=== PATIENT | male | born 1980 | race Two or more races ===

== ENCOUNTER 2018-08-14 19:00 | Inpatient (IN) | payer SELFPAY ==
[~2018-08-14] VITALS: Ht 177.8 cm; Wt 104.3 kg
[2018-08-14] MEDS ORDERED: IV NORMAL SALINE 1000ML BAG 1,000 ML IV ONE (20:15)
[2018-08-14 20:27] LABS: BASO # 0.1 x10^3/uL (0.0-0.2); BASO % 1 % (0-3); EOS % 0 % (0-3); HEMATOCRIT 48.3 % (39.0-53.0); HEMOGLOBIN 17.2 g/dL (13.0-17.5); LYMPH # 4.6 x10^3/uL (1.0-4.8); LYMPH % 49 % (24-48); MEAN CORPUSCULAR HEMOGLOBIN 33 pg (25-35); MEAN CORPUSCULAR HGB CONC 36 g/dL (31-37); MEAN CORPUSCULAR VOLUME 93 fL (79-100); MONO % 11 % (0-9); NEUT # 3.6 x10^3uL (1.8-7.7); NEUT % 39 % (31-73); PLATELET COUNT 169 x10^3/uL (140-400); RED CELL DISTRIBUTION WIDTH 14.9 % (11.5-14.5); WHITE BLOOD COUNT 9.3 x10^3/uL (4.0-11.0)
[2018-08-14] MEDS ORDERED: MULTIVIT INFUSN,ADULT 4,VIT K 10 ML, THIAMINE INJ 100 MG, FOLIC ACID INJ 1 MG in IV NOR... IV ONE (20:30)
--- NOTE | 2018-08-14 20:36 | PHYS DOC ---
Past Medical History Past Medical History: Hypertension Additional Past Surgical Histo: HERNIA Alcohol Use: Heavy Drug Use: Marijuana Adult General Chief Complaint Chief Complaint: WITHDRAWL HPI HPI 38-year-old male presents to ER as concerns of alcohol withdrawal. Patient reports he drank approx. 1 1/2 pints of vodka last night binge drinking with last drink at 2 a.m. Pt reports today he has felt nauseated and vomited at arrival to ER. Pt reports he has felt shaky and anxious. Pt reports he has had hx of alcohol withdrawal seizures in past. Pt denies any seizure like activity today or lethargy. Pt reports he has had tingling in bilat. hands- on initial exam pt has rapid resp. which was discussed and he was able to slow his breathing. Pt denies CP, SOA, abd pain, or diarrhea. Pt reports he smokes marijuana occasional denying any other illicit drug use. Review of Systems Review of Systems Constitutional: Reports chills and feeling shaky- denies fever, confusion. Reports generalized fatigue Eyes: Denies change in visual acuity, redness, or eye pain [] HENT: Denies nasal congestion or sore throat [] Respiratory: Denies cough or shortness of breath [] Cardiovascular: Denies CP/palpitations GI: Denies bloody stools or diarrhea. Reports intermittent nausea with 1 episode of vomiting on arrival to ER. Reports mild diffuse abd cramping : Denies dysuria or hematuria. Denies incontinence Musculoskeletal: Denies back pain or joint pain [] Integument: Denies rash, swelling, or skin lesions [] Neurologic: Denies headache, focal weakness or sensory changes Psych: Feels anxious denying any SI/HI or hallucinations/delusions[] All other systems were reviewed and found to be within normal limits, except as documented in this note. Current Medications Current Medications Current Medications Medications (Trade) Dose Ordered Sig/[place] Start Time Stop Time Status Last Admin Dose Admin Lorazepam (Ativan) 1 mg 1X ONCE 08/14/18 20:45 08/14/18 20:49 DC 08/14/18 21:31 1 MG Multivitamins 10 ml/Thiamine HCl 100 mg/Folic Acid 1 mg/Sodium Chloride 1,011.2 ml @ 1,000.088 mls/hr 1X ONCE 08/14/18 20:30 08/14/18 21:30 DC 08/14/18 20:43 1,000.088 MLS/HR Ondansetron HCl (Zofran) 4 mg 1X ONCE 08/14/18 20:45 08/14/18 20:49 DC 08/14/18 21:31 4 MG Sodium Chloride 1,000 ml @ 1,000 mls/hr 1X ONCE 08/14/18 20:15 08/14/18 21:14 DC 08/14/18 20:20 1,000 MLS/HR Allergies Allergies Allergies Coded Allergies Type Severity Reaction Last Updated Verified No Known Drug Allergies 08/14/18 No Physical Exam Physical Exam Constitutional: Well developed, well nourished, mild distress on initial exam anxious/shaky/rapid breathing, non-toxic appearance. [] HENT: Normocephalic, atraumatic, bilateral external ears normal, dry/pink mucous membranes, no oral exudates, nose normal. [] Eyes: PERRLA, no nystagmus, conjunctiva normal, no discharge. [] Neck: Normal range of motion, no tenderness, supple, no stridor. [] Cardiovascular:Heart rate regular rhythm, no murmur [] Lungs & Thorax: Bilateral breath sounds clear to auscultation. Resp. equal- initially rapid- with redirection pt was able to slow breathing Abdomen: Bowel sounds normal, soft, no tenderness, no masses, no pulsatile masses. [] Skin: Warm, dry, no erythema, no rash. [] Back: No tenderness, no CVA tenderness. [] Extremities: No tenderness, no cyanosis, no clubbing, ROM intact, no edema. [] Neurologic: Alert and oriented X 3, normal motor function, normal sensory function, no focal deficits noted. [] Psychologic: Affect normal, judgement normal, mood normal. No uncontrollable behavior[] Current Patient Data Vital Signs Vital Signs Date Time Temp Pulse Resp B/P (MAP) Pulse Ox O2 Delivery O2 Flow Rate FiO2 08/14/18 21:00 80 18 163/105 (124) 99 08/14/18 19:34 97.8 Room Air 97.8 Lab Values Laboratory Tests Test 08/14/18 19:28 08/14/18 20:37 White Blood Count 9.3 x10^3/uL (4.0-11.0) Red Blood Count 5.20 x10^6/uL (4.30-5.70) Hemoglobin 17.2 g/dL (13.0-17.5) Hematocrit 48.3 % (39.0-53.0) Mean Corpuscular Volume 93 fL (79-100) Mean Corpuscular Hemoglobin 33 pg (25-35) Mean Corpuscular Hemoglobin Concent 36 g/dL (31-37) Red Cell Distribution Width 14.9 % (11.5-14.5) H Platelet Count 169 x10^3/uL (140-400) Neutrophils (%) (Auto) 39 % (31-73) Lymphocytes (%) (Auto) 49 % (24-48) H Monocytes (%) (Auto) 11 % (0-9) H Eosinophils (%) (Auto) 0 % (0-3) Basophils (%) (Auto) 1 % (0-3) Neutrophils # (Auto) 3.6 x10^3uL (1.8-7.7) Lymphocytes # (Auto) 4.6 x10^3/uL (1.0-4.8) Monocytes # (Auto) 1.0 x10^3/uL (0.0-1.1) Eosinophils # (Auto) 0.0 x10^3/uL (0.0-0.7) Basophils # (Auto) 0.1 x10^3/uL (0.0-0.2) Prothrombin Time 13.9 SEC (11.7-14.0) Prothrombin Time INR 1.1 (0.8-1.1) PTT 29 SEC (24-38) Sodium Level 138 mmol/L (136-145) Potassium Level 3.1 mmol/L (3.5-5.1) L Chloride Level 95 mmol/L (98-107) L Carbon Dioxide Level 21 mmol/L (21-32) Anion Gap 22 (6-14) H Blood Urea Nitrogen 7 mg/dL (8-26) L Creatinine 1.1 mg/dL (0.7-1.3) Estimated GFR (Cockcroft-Gault) 75.3 BUN/Creatinine Ratio 6 (6-20) Glucose Level 169 mg/dL (70-99) H Calcium Level 9.5 mg/dL (8.5-10.1) Magnesium Level 1.5 mg/dL (1.8-2.4) L Total Bilirubin 0.6 mg/dL (0.2-1.0) Aspartate Amino Transferase (AST) 77 U/L (15-37) H Alanine Aminotransferase (ALT) 55 U/L (16-63) Alkaline Phosphatase 73 U/L (46-116) Total Protein 8.7 g/dL (6.4-8.2) H Albumin 4.0 g/dL (3.4-5.0) Albumin/Globulin Ratio 0.9 (1.0-1.7) L Lipase 532 U/L (73-393) H Ethyl Alcohol Level 48 mg/dL (0-10) H Urine Collection Type Unknown Urine Color Mitzy Urine Clarity Clear Urine pH 6.5 Urine Specific [place] 1.025 Urine Protein 100 mg/dL (NEG-TRACE) Urine Glucose (UA) 100 mg/dL (NEG) Urine Ketones (Stick) 15 mg/dL (NEG) Urine Blood Trace (NEG) Urine Nitrite Negative (NEG) Urine Bilirubin Negative (NEG) Urine Urobilinogen Dipstick 0.2 mg/dL (0.2 mg/dL) Urine Leukocyte Esterase Negative (NEG) Urine RBC Occ /HPF (0-2) Urine WBC 1-4 /HPF (0-4) Urine Squamous Epithelial Cells Few /LPF Urine Bacteria Few /HPF (0-FEW) Urine Mucus Marked /LPF Urine Opiates Screen Neg (NEG) Urine Methadone Screen Neg (NEG) Urine Barbiturates Neg (NEG) Urine Phencyclidine Screen Neg (NEG) Urine Amphetamine/Methamphetamine Neg (NEG) Urine Benzodiazepines Screen Neg (NEG) Urine Cocaine Screen Neg (NEG) Urine Cannabinoids Screen Pos (NEG) Urine Ethyl Alcohol Pos (NEG) Laboratory Tests 08/14/18 19:28 Laboratory Tests 08/14/18 19:28 EKG EKG ECG 19:33 ST @ [address]-T wave changes suggestive of ischemia Radiology/Procedures Radiology/Procedures [] Course & Med Decision Making Course & Med Decision Making Pertinent Labs reviewed. (See chart for details) On arrival pt was anxious and shaky- with redirection on breathing he was able calm self some with slower resp. With pt reporting hx of previous etoh withdrawal seizures- initiated seizure precautions. 2046: RN reports during further discussion with patient he admitted today around 2 PM he was drinking rubbing alcohol. This was discussed with pt and he reported he had no other alcohol at home and felt his shakes and sxs were worsening so in attempt to improve sxs he drank sm. amt of rubbing alcohol. Pt reports he is still feeling shaky but has had improved sxs since receiving flds/tx in ER. He reports he is feeling less anxious. Patient has had no seizure -like activity while in the ER. Patient reports 2 months ago he was inpatient at [facility] due to alcohol withdrawal seizures and so he has concerns for this again. Will admit to hospitalist for further care/monitoring. Test results were discussed with pt with K+ 3.1 alcohol 48 lipase 532. Pt was given banana bag and ativan for sxs. Pt has denied SI but reported hx of anxiety/ depression. He is requesting resources on alcohol detox centers/tx programs- will inform hospitalist. Provided resource sheet on community programs while in ER. Dragon Disclaimer Dragon Disclaimer This electronic medical record was generated, in whole or in part, using a voice recognition dictation system. Departure Departure Impression: Primary Impression: Alcohol withdrawal Additional Impression: Alcohol abuse Disposition: ADMITTED INPATIENT Admitting Physician: Nicole Quinteros Condition: STABLE Referrals: NO PCP (PCP) Scripts Folic Acid (FOLIC ACID) 1 Mg Tablet 1 TAB PO DAILY, #90 TAB 1 Refill Prov: GREYSON RIVERA MD 08/16/18 Thiamine Hcl (THIAMINE HCL) 100 Mg Tablet 100 MG PO AFTRNOON for 30 Days, #30 TAB Prov: GREYSON RIVERA MD 08/16/18 Pantoprazole Sodium (PROTONIX IV) 40 Mg Vial 40 MG IVP DAILYAC for 14 Days, #14 EACH Prov: GREYSON RIVERA MD 08/16/18 Attending Co-Sign Attending Co-Sign The patient was not seen by me. The MLP chart was reviewed. I Agree with the plan of care. Problem Qualifiers TALA HIDALGO APRN Aug 14, 2018 20:36 CHRISTY GRAHAM MD Aug 15, 2018 06:42
[2018-08-14 20:37] LABS: PROTHROMBIN TIME PATIENT 13.9 SEC (11.7-14.0)
[2018-08-14] MEDS ORDERED: ONDANSETRON PF 4 MG/2 ML VIAL. IV ONE (20:45)
[2018-08-14 20:53] LABS: BILIRUBIN,URINE NEGATIVE (NEG); CLARITY,URINE CLEAR; COLOR,URINE AMBER; NITRITE,URINE NEGATIVE (NEG); PH,URINE 6.5; PROTEIN,URINE 100 mg/dL (NEG-TRACE); UROBILINOGEN,URINE 0.2 mg/dL (0.2 mg/dL)
[2018-08-14 21:00] LABS: BACTERIA,URINE FEW /HPF (0-FEW); RBC,URINE OCC /HPF (0-2); SQUAMOUS EPITHELIAL CELL,UR FEW /LPF
[2018-08-14 21:00] LABS: CALCIUM 9.5 mg/dL (8.5-10.1); CREATININE 1.1 mg/dL (0.7-1.3); GFR 75.3; POTASSIUM 3.1 mmol/L (3.5-5.1)
[2018-08-14 21:09] LABS: ALBUMIN/GLOBULIN RATIO 0.9 (1.0-1.7); MAGNESIUM 1.5 mg/dL (1.8-2.4); TOTAL BILIRUBIN 0.6 mg/dL (0.2-1.0); TOTAL PROTEIN 8.7 g/dL (6.4-8.2)
[2018-08-14 21:12] LABS: BARBITURATES NEG (NEG); BENZODIAZEPINES NEG (NEG); CANNABINOIDS POS (NEG); COCAINE NEG (NEG); METHADONE NEG (NEG); OPIATES NEG (NEG); PHENCYCLIDINE NEG (NEG)
[2018-08-14 21:15] LABS: AMPHETAMINE/METHAMPHETAMINE NEG (NEG)
[2018-08-14 23:00] VITALS: BP 143/103
[2018-08-14] MEDS ORDERED: INFLUENZA VAX SCREEN BY RX. MC PRN (23:45)
--- NOTE | 2018-08-14 23:58 | EKG ---
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
[2018-08-15] MEDS ORDERED: LISI-334 PO (00:03)
[2018-08-15] MEDS ORDERED: chlordiazePOXIDE HCL 25 MG CAPSULE PO PRN (02:30)
[2018-08-15 03:00] VITALS: BP 142/96
[2018-08-15] MEDS: ONDANSETRON PF 4 MG/2 ML VIAL. IV PRN ×2 (03:09→19:53)
[2018-08-15 06:04] LABS: BASO % 0 % (0-3); EOS % 0 % (0-3); HEMATOCRIT 45.4 % (39.0-53.0); HEMOGLOBIN 15.9 g/dL (13.0-17.5); LYMPH # 2.6 x10^3/uL (1.0-4.8); LYMPH % 28 % (24-48); MEAN CORPUSCULAR HEMOGLOBIN 33 pg (25-35); MEAN CORPUSCULAR HGB CONC 35 g/dL (31-37); MEAN CORPUSCULAR VOLUME 95 fL (79-100); MONO # 0.9 x10^3/uL (0.0-1.1); MONO % 9 % (0-9); NEUT # 5.8 x10^3uL (1.8-7.7); NEUT % 62 % (31-73); PLATELET COUNT 132 x10^3/uL (140-400); RED CELL DISTRIBUTION WIDTH 15.2 % (11.5-14.5); WHITE BLOOD COUNT 9.3 x10^3/uL (4.0-11.0)
[2018-08-15 06:27] LABS: ALBUMIN 3.4 g/dL (3.4-5.0); ALBUMIN/GLOBULIN RATIO 0.7 (1.0-1.7); CALCIUM 8.6 mg/dL (8.5-10.1); CREATININE 1.1 mg/dL (0.7-1.3); GFR 75.3; POTASSIUM 3.1 mmol/L (3.5-5.1); TOTAL BILIRUBIN 0.8 mg/dL (0.2-1.0)
[2018-08-15 07:00] VITALS: BP 161/106
[2018-08-15] MEDS: chlordiazePOXIDE HCL 25 MG CAPSULE PO PRN ×3 (08:23→15:59)
[2018-08-15] MEDS: cloNIDine HCL 0.1 MG TABLET PO PRN ×4 (08:25→19:54)
[2018-08-15] MEDS: IBUPROFEN 200 MG TABLET. PO PRN ×2 (08:27→19:54)
--- NOTE | 2018-08-15 10:35 | PDOC1 ---
History and Physical Date of Admission Date of Admission DATE: 08/15/18 TIME: 10:34 Identification/Chief Complaint Chief Complaint CC 38-year-old male presents to ER as concerns of alcohol withdrawal. reports he drank approx. 1 1/2 pints of vodka last night binge drinking with last drink at 2 a.m. IS UPSET HIS GIRLFRIEND HAS LEFT HIM has felt nauseated and vomited at arrival to ER. , he has felt shaky and anxious. reports he has had hx of alcohol withdrawal seizures in pasT Past Medical History Cardiovascular: Hyperlipidemia Heme/Onc: No pertinent hx Psych: Anxiety Dermatology: No pertinent hx Past Surgical History Past Surgical History: No pertinent history Family History Family History: Alcohol Abuse, Depression, High Cholestrol Family History: Parent Social History Smoke: <1 pack per day ALCOHOL: heavy Drugs: None Current Problem List Problem List Problems Medical Problems: (1) Alcohol abuse Status: Acute (2) Alcohol withdrawal Status: Acute Current Medications Current Medications Current Medications Sodium Chloride 1,000 ml @ 1,000 mls/hr 1X ONCE IV Last administered on at 20:20; Start 08/14/18 at 20:15; Stop 08/14/18 at 21:14; Status DC Multivitamins 10 ml/Thiamine HCl 100 mg/Folic Acid 1 mg/Sodium Chloride 1,011.2 ml @ 1,000.088 mls/hr 1X ONCE IV Last administered on 08/14/18at 20:43; Start 08/14/18 at 20:30; Stop 08/14/18 at 21:30; Status DC Lorazepam (Ativan) 1 mg 1X ONCE IV Last administered on 08/14/18at 20:20; Start 08/14/18 at 20:15; Stop 08/14/18 at 20:16; Status DC Ondansetron HCl (Zofran) 4 mg 1X ONCE IV Last administered on 08/14/18at 21:31 ; Start 08/14/18 at 20:45; Stop 08/14/18 at 20:49; Status DC Lorazepam (Ativan) 1 mg 1X ONCE IV Last administered on 08/14/18at 21:31; Start 08/14/18 at 20:45; Stop 08/14/18 at 20:49; Status DC Ondansetron HCl (Zofran) 4 mg PRN Q6HRS PRN IV NAUSEA/VOMITING Last administered on 08/15/18at 03:09; Start 08/14/18 at 22:45; Stop 08/15/18 at 22:44 Influenza Virus Vaccine (Afluria Trivalent 0095-0320 Syringe) 0.5 ml ONCE ONCE VAX IM Last administered on 08/15/18at 08:32; Start 08/15/18 at 09:00; Stop at 09:01; Status DC Info (FLU VACCINE SCREEN per RX) 1 each PRN 1X PRN MC SEE COMMENTS; Start 08/14 at 23:45; Status Cancel Chlordiazepoxide (Librium) 50 mg PRN Q1HR PRN PO For CIWA 8-14 Last administered on 08/15/18at 09:53; Start 08/15/18 at 02:30 Chlordiazepoxide (Librium) 100 mg PRN Q1HR PRN PO For CIWA 15 or greater; Start 08/15/18 at 02:30 Lorazepam (Ativan) 2 mg PRN Q1HR PRN IV For CIWA 8-14 Last administered on 08/15at 03:10; Start 08/15/18 at 02:30 Lorazepam (Ativan) 4 mg PRN Q1HR PRN IV For CIWA 15 or greater; Start 08/15/18 at 02:30 Clonidine HCl (Catapres) 0.1 mg PRN Q1HR PRN PO SBP > 180 or DBP > 100, MRX3 Last administered on 08/15/18at 09:54; Start 08/15/18 at 02:30 Ibuprofen (Motrin) 600 mg PRN Q8HRS PRN PO INFLAMMATION Last administered on at 08:27; Start 08/15/18 at 08:00 Active Scripts Active Reported Lisinopril 20 Mg Tablet 1 Tab PO DAILY Allergies Allergies: Coded Allergies: No Known Drug Allergies (Unverified , 08/14/18) ROS Review of System Review of Systems Review of Systems Constitutional: Denies fever or chills [] Eyes: Denies change in visual acuity, redness, or eye pain [] HENT: Denies nasal congestion or sore throat HAS HEADACHE, NO NECK PAIN [] Respiratory: Denies cough or shortness of breath [] Cardiovascular: No additional information not addressed in HPI [] GI: nausea, NO vomiting, bloody stools or diarrhea [] : Denies dysuria or hematuria [] Musculoskeletal: Denies back pain or joint pain [] Integument: Denies rash or skin lesions [] Neurologic: Denies headache, focal weakness or sensory changes [] Endocrine: Denies polyuria or polydipsia [] 14 PT systems were reviewed and found to be within normal limits, except as documented in this note. General: YES: Fatigue PSYCHOLOGICAL ROS: YES: Anxiety, Depression HEENT: YES: Heacaches ENDOCRINE: No: Breast Changes, Galactorrhea, Hair Pattern Changes, Hot Flashes , Malaise/lethargy, Mood Swings, Palpitations, Polydipsia/polyuria, Skin Changes , Temperature Intolerance, Unexpected Weight Changes, Other Respiratory: No: Cough, Hemoptysis, Orthopnea, Pleuritic Pain, Shortness of breath, SOB with excertion, Sputum Changes, Stridor, Tachypnea, Wheezing, Other Gastrointestinal: Yes Nausea Musculoskeletal: No Gait Disturbance, No Joint Pain, No Joint Stiffness, No Joint Swelling, No Muscle Pain, No Muscular Weakness, No Pain In:, No Swelling In:, No Other Physical Exam Physical Exam Physical Exam Physical Exam Constitutional: Well developed, well nourished, mild distress on initial exam anxious// NO rapid breathing, non-toxic appearance. [] HENT: Normocephalic, atraumatic, bilateral external ears normal, MOIST /pink mucous membranes, no oral exudates, nose normal. [] Eyes: PERRLA, no nystagmus, conjunctiva normal, no discharge. [] Neck: Normal range of motion, no tenderness, supple, no stridor. [] Cardiovascular:Heart rate regular rhythm, no murmur [] Lungs & Thorax: Bilateral breath sounds clear to auscultation. Resp. equal- initially rapid- with redirection pt was able to slow breathing Abdomen: Bowel sounds normal, soft, no tenderness, no masses, no pulsatile masses. [] Skin: Warm, dry, no erythema, no rash. [] Back: No tenderness, no CVA tenderness. [] Extremities: No tenderness, no cyanosis, no clubbing, ROM intact, no edema. [] Neurologic: Alert and oriented X 3, normal motor function, normal sensory function, no focal deficits noted. NO SELF HARM IDEATIONS [] Psychologic: Affect FLAT, judgement normal, mood normal. No uncontrollable behavior[] General: Oriented X3, Cooperative HEENT: Atraumatic, PERRLA, EOMI, Mucous membr. moist/pink Lungs: Clear to auscultation, Normal air movement Abdomen: Normal bowel sounds, Soft Rectal Exam: not examined Neuro: Normal speech, Cranial nerves 3-12 NL Psych/Mental Status: Mental status NL Vitals Vitals Vital Signs Date Time Temp Pulse Resp B/P (MAP) Pulse Ox O2 Delivery O2 Flow Rate FiO2 08/15/18 09:54 80 148/108 08/15/18 08:00 Room Air 08/15/18 07:00 98.6 18 96 98.6 Labs Labs Laboratory Tests Test 08/14/18 19:28 08/14/18 20:37 08/15/18 04:43 White Blood Count 9.3 x10^3/uL (4.0-11.0) 9.3 x10^3/uL (4.0-11.0) Red Blood Count 5.20 x10^6/uL (4.30-5.70) 4.80 x10^6/uL (4.30-5.70) Hemoglobin 17.2 g/dL (13.0-17.5) 15.9 g/dL (13.0-17.5) Hematocrit 48.3 % (39.0-53.0) 45.4 % (39.0-53.0) Mean Corpuscular Volume 93 fL (79-100) 95 fL (79-100) Mean Corpuscular Hemoglobin 33 pg (25-35) 33 pg (25-35) Mean Corpuscular Hemoglobin Concent 36 g/dL (31-37) 35 g/dL (31-37) Red Cell Distribution Width 14.9 % (11.5-14.5) 15.2 % (11.5-14.5) Platelet Count 169 x10^3/uL (140-400) 132 x10^3/uL (140-400) Neutrophils (%) (Auto) 39 % (31-73) 62 % (31-73) Lymphocytes (%) (Auto) 49 % (24-48) 28 % (24-48) Monocytes (%) (Auto) 11 % (0-9) 9 % (0-9) Eosinophils (%) (Auto) 0 % (0-3) 0 % (0-3) Basophils (%) (Auto) 1 % (0-3) 0 % (0-3) Neutrophils # (Auto) 3.6 x10^3uL (1.8-7.7) 5.8 x10^3uL (1.8-7.7) Lymphocytes # (Auto) 4.6 x10^3/uL (1.0-4.8) 2.6 x10^3/uL (1.0-4.8) Monocytes # (Auto) 1.0 x10^3/uL (0.0-1.1) 0.9 x10^3/uL (0.0-1.1) Eosinophils # (Auto) 0.0 x10^3/uL (0.0-0.7) 0.0 x10^3/uL (0.0-0.7) Basophils # (Auto) 0.1 x10^3/uL (0.0-0.2) 0.0 x10^3/uL (0.0-0.2) Prothrombin Time 13.9 SEC (11.7-14.0) Prothromb Time International Ratio 1.1 (0.8-1.1) Activated Partial Thromboplast Time 29 SEC (24-38) Sodium Level 138 mmol/L (136-145) 138 mmol/L (136-145) Potassium Level 3.1 mmol/L (3.5-5.1) 3.1 mmol/L (3.5-5.1) Chloride Level 95 mmol/L (98-107) 99 mmol/L (98-107) Carbon Dioxide Level 21 mmol/L (21-32) 27 mmol/L (21-32) Anion Gap 22 (6-14) 12 (6-14) Blood Urea Nitrogen 7 mg/dL (8-26) 4 mg/dL (8-26) Creatinine 1.1 mg/dL (0.7-1.3) 1.1 mg/dL (0.7-1.3) Estimated GFR (Cockcroft-Gault) 75.3 75.3 BUN/Creatinine Ratio 6 (6-20) 4 (6-20) Glucose Level 169 mg/dL (70-99) 105 mg/dL (70-99) Calcium Level 9.5 mg/dL (8.5-10.1) 8.6 mg/dL (8.5-10.1) Magnesium Level 1.5 mg/dL (1.8-2.4) Total Bilirubin 0.6 mg/dL (0.2-1.0) 0.8 mg/dL (0.2-1.0) Aspartate Amino Transf (AST/SGOT) 77 U/L (15-37) 55 U/L (15-37) Alanine Aminotransferase (ALT/SGPT) 55 U/L (16-63) 49 U/L (16-63) Alkaline Phosphatase 73 U/L (46-116) 68 U/L (46-116) Total Protein 8.7 g/dL (6.4-8.2) 8.0 g/dL (6.4-8.2) Albumin 4.0 g/dL (3.4-5.0) 3.4 g/dL (3.4-5.0) Albumin/Globulin Ratio 0.9 (1.0-1.7) 0.7 (1.0-1.7) Lipase 532 U/L (73-393) Ethyl Alcohol Level 48 mg/dL (0-10) Urine Collection Type Unknown Urine Color Mitzy Urine Clarity Clear Urine pH 6.5 Urine Specific [place] 1.025 Urine Protein 100 mg/dL (NEG-TRACE) Urine Glucose (UA) 100 mg/dL (NEG) Urine Ketones (Stick) 15 mg/dL (NEG) Urine Blood Trace (NEG) Urine Nitrite Negative (NEG) Urine Bilirubin Negative (NEG) Urine Urobilinogen Dipstick 0.2 mg/dL (0.2 mg/dL) Urine Leukocyte Esterase Negative (NEG) Urine RBC Occ /HPF (0-2) Urine WBC 1-4 /HPF (0-4) Urine Squamous Epithelial Cells Few /LPF Urine Bacteria Few /HPF (0-FEW) Urine Mucus Marked /LPF Urine Opiates Screen Neg (NEG) Urine Methadone Screen Neg (NEG) Urine Barbiturates Neg (NEG) Urine Phencyclidine Screen Neg (NEG) Urine Amphetamine/Methamphetamine Neg (NEG) Urine Benzodiazepines Screen Neg (NEG) Urine Cocaine Screen Neg (NEG) Urine Cannabinoids Screen Pos (NEG) Urine Ethyl Alcohol Pos (NEG) Laboratory Tests Test 08/14/18 19:28 08/14/18 20:37 08/15/18 04:43 White Blood Count 9.3 x10^3/uL (4.0-11.0) 9.3 x10^3/uL (4.0-11.0) Red Blood Count 5.20 x10^6/uL (4.30-5.70) 4.80 x10^6/uL (4.30-5.70) Hemoglobin 17.2 g/dL (13.0-17.5) 15.9 g/dL (13.0-17.5) Hematocrit 48.3 % (39.0-53.0) 45.4 % (39.0-53.0) Mean Corpuscular Volume 93 fL (79-100) 95 fL (79-100) Mean Corpuscular Hemoglobin 33 pg (25-35) 33 pg (25-35) Mean Corpuscular Hemoglobin Concent 36 g/dL (31-37) 35 g/dL (31-37) Red Cell Distribution Width 14.9 % (11.5-14.5) 15.2 % (11.5-14.5) Platelet Count 169 x10^3/uL (140-400) 132 x10^3/uL (140-400) Neutrophils (%) (Auto) 39 % (31-73) 62 % (31-73) Lymphocytes (%) (Auto) 49 % (24-48) 28 % (24-48) Monocytes (%) (Auto) 11 % (0-9) 9 % (0-9) Eosinophils (%) (Auto) 0 % (0-3) 0 % (0-3) Basophils (%) (Auto) 1 % (0-3) 0 % (0-3) Neutrophils # (Auto) 3.6 x10^3uL (1.8-7.7) 5.8 x10^3uL (1.8-7.7) Lymphocytes # (Auto) 4.6 x10^3/uL (1.0-4.8) 2.6 x10^3/uL (1.0-4.8) Monocytes # (Auto) 1.0 x10^3/uL (0.0-1.1) 0.9 x10^3/uL (0.0-1.1) Eosinophils # (Auto) 0.0 x10^3/uL (0.0-0.7) 0.0 x10^3/uL (0.0-0.7) Basophils # (Auto) 0.1 x10^3/uL (0.0-0.2) 0.0 x10^3/uL (0.0-0.2) Prothrombin Time 13.9 SEC (11.7-14.0) Prothromb Time International Ratio 1.1 (0.8-1.1) Activated Partial Thromboplast Time 29 SEC (24-38) Sodium Level 138 mmol/L (136-145) 138 mmol/L (136-145) Potassium Level 3.1 mmol/L (3.5-5.1) 3.1 mmol/L (3.5-5.1) Chloride Level 95 mmol/L (98-107) 99 mmol/L (98-107) Carbon Dioxide Level 21 mmol/L (21-32) 27 mmol/L (21-32) Anion Gap 22 (6-14) 12 (6-14) Blood Urea Nitrogen 7 mg/dL (8-26) 4 mg/dL (8-26) Creatinine 1.1 mg/dL (0.7-1.3) 1.1 mg/dL (0.7-1.3) Estimated GFR (Cockcroft-Gault) 75.3 75.3 BUN/Creatinine Ratio 6 (6-20) 4 (6-20) Glucose Level 169 mg/dL (70-99) 105 mg/dL (70-99) Calcium Level 9.5 mg/dL (8.5-10.1) 8.6 mg/dL (8.5-10.1) Magnesium Level 1.5 mg/dL (1.8-2.4) Total Bilirubin 0.6 mg/dL (0.2-1.0) 0.8 mg/dL (0.2-1.0) Aspartate Amino Transf (AST/SGOT) 77 U/L (15-37) 55 U/L (15-37) Alanine Aminotransferase (ALT/SGPT) 55 U/L (16-63) 49 U/L (16-63) Alkaline Phosphatase 73 U/L (46-116) 68 U/L (46-116) Total Protein 8.7 g/dL (6.4-8.2) 8.0 g/dL (6.4-8.2) Albumin 4.0 g/dL (3.4-5.0) 3.4 g/dL (3.4-5.0) Albumin/Globulin Ratio 0.9 (1.0-1.7) 0.7 (1.0-1.7) Lipase 532 U/L (73-393) Ethyl Alcohol Level 48 mg/dL (0-10) Urine Collection Type Unknown Urine Color Mitzy Urine Clarity Clear Urine pH 6.5 Urine Specific [place] 1.025 Urine Protein 100 mg/dL (NEG-TRACE) Urine Glucose (UA) 100 mg/dL (NEG) Urine Ketones (Stick) 15 mg/dL (NEG) Urine Blood Trace (NEG) Urine Nitrite Negative (NEG) Urine Bilirubin Negative (NEG) Urine Urobilinogen Dipstick 0.2 mg/dL (0.2 mg/dL) Urine Leukocyte Esterase Negative (NEG) Urine RBC Occ /HPF (0-2) Urine WBC 1-4 /HPF (0-4) Urine Squamous Epithelial Cells Few /LPF Urine Bacteria Few /HPF (0-FEW) Urine Mucus Marked /LPF Urine Opiates Screen Neg (NEG) Urine Methadone Screen Neg (NEG) Urine Barbiturates Neg (NEG) Urine Phencyclidine Screen Neg (NEG) Urine Amphetamine/Methamphetamine Neg (NEG) Urine Benzodiazepines Screen Neg (NEG) Urine Cocaine Screen Neg (NEG) Urine Cannabinoids Screen Pos (NEG) Urine Ethyl Alcohol Pos (NEG) VTE Prophylaxis Ordered VTE Prophylaxis Devices: Yes VTE Pharmacological Prophylaxi: Yes Assessment/Plan Assessment/Plan IMPRESSION 1. Situational depression 2. alcohol abuse 3. morbid obesity 4. hypertension plan 1. alcohol withdrawal precautions 2. bp control 3. banana bag 4. refer for alcohol dependency 5. scd's 6. iv protonix gi prophylaxis GREYSON RIVERA MD Aug 15, 2018 10:35
[2018-08-15 11:00] VITALS: BP 150/97
[2018-08-15] MEDS ORDERED: MULTIVIT INFUSN,ADULT 4,VIT K 10 ML, THIAMINE INJ 100 MG, FOLIC ACID INJ 1 MG in IV NOR... IV ONE (14:30)
[2018-08-15 15:00] VITALS: BP 144/102
[2018-08-15 19:00] VITALS: BP 152/106
[2018-08-15 23:00] VITALS: BP 138/85
[2018-08-16 03:00] VITALS: BP_SYST 137; BP_SYST 142; BP_DIAS 106; BP_DIAS 84
[2018-08-16 05:34] LABS: BASO % 0 % (0-3); EOS # 0.1 x10^3/uL (0.0-0.7); EOS % 1 % (0-3); HEMATOCRIT 49.6 % (39.0-53.0); HEMOGLOBIN 17.2 g/dL (13.0-17.5); LYMPH # 2.4 x10^3/uL (1.0-4.8); LYMPH % 31 % (24-48); MEAN CORPUSCULAR HEMOGLOBIN 33 pg (25-35); MEAN CORPUSCULAR HGB CONC 35 g/dL (31-37); MEAN CORPUSCULAR VOLUME 94 fL (79-100); MONO # 0.8 x10^3/uL (0.0-1.1); MONO % 10 % (0-9); NEUT # 4.6 x10^3uL (1.8-7.7); NEUT % 58 % (31-73); PLATELET COUNT 138 x10^3/uL (140-400); RED BLOOD COUNT 5.29 x10^6/uL (4.30-5.70); RED CELL DISTRIBUTION WIDTH 15.2 % (11.5-14.5); WHITE BLOOD COUNT 7.9 x10^3/uL (4.0-11.0)
[2018-08-16 06:07] LABS: ALBUMIN 3.5 g/dL (3.4-5.0); ALBUMIN/GLOBULIN RATIO 0.7 (1.0-1.7); CALCIUM 9.1 mg/dL (8.5-10.1); CREATININE 0.9 mg/dL (0.7-1.3); POTASSIUM 3.6 mmol/L (3.5-5.1); TOTAL BILIRUBIN 0.9 mg/dL (0.2-1.0); TOTAL PROTEIN 8.2 g/dL (6.4-8.2)
[2018-08-16] MEDS ORDERED: ONDANSETRON PF 4 MG/2 ML VIAL. ONE (06:48)
[2018-08-16 07:00] VITALS: BP 142/103
[2018-08-16] MEDS ORDERED: ONDANSETRON PF 4 MG/2 ML VIAL. IV PRN (07:00)
[2018-08-16] MEDS ORDERED: PANTOPRAZOLE IV PUSH 40 MG VIAL. IVP SCH (07:30)
[2018-08-16] MEDS: cloNIDine HCL 0.1 MG TABLET PO PRN (07:40)
[2018-08-16] MEDS: chlordiazePOXIDE HCL 25 MG CAPSULE PO PRN (07:40)
--- NOTE | 2018-08-16 09:27 | PDOC ---
PROGRESS NOTES History of Present Illness History of Present Illness Assessment/Plan Assessment/Plan IMPRESSION 1. Situational depression 2. alcohol abuse 3. morbid obesity 4. hypertension still diaphoretic, shaking less plan 1. alcohol withdrawal precautions 2. bp control 3. banana bag 4. refer for alcohol dependency TREATMENT 5. scd's 6. iv protonix gi prophylaxis Vitals Vitals Vital Signs Date Time Temp Pulse Resp B/P (MAP) Pulse Ox O2 Delivery O2 Flow Rate FiO2 08/16/18 07:40 91 142/103 08/16/18 07:00 96.4 20 97 Room Air 96.4 Physical Exam General: Oriented X3, Cooperative Heart: Regular rate, Normal S1, Normal S2 Lungs: Clear Abdomen: Normal bowel sounds, Soft Extremities: No clubbing, No cyanosis Skin: No significant lesion Labs LABS Laboratory Tests Test 08/16/18 04:55 White Blood Count 7.9 x10^3/uL (4.0-11.0) Red Blood Count 5.29 x10^6/uL (4.30-5.70) Hemoglobin 17.2 g/dL (13.0-17.5) Hematocrit 49.6 % (39.0-53.0) Mean Corpuscular Volume 94 fL (79-100) Mean Corpuscular Hemoglobin 33 pg (25-35) Mean Corpuscular Hemoglobin Concent 35 g/dL (31-37) Red Cell Distribution Width 15.2 % (11.5-14.5) Platelet Count 138 x10^3/uL (140-400) Neutrophils (%) (Auto) 58 % (31-73) Lymphocytes (%) (Auto) 31 % (24-48) Monocytes (%) (Auto) 10 % (0-9) Eosinophils (%) (Auto) 1 % (0-3) Basophils (%) (Auto) 0 % (0-3) Neutrophils # (Auto) 4.6 x10^3uL (1.8-7.7) Lymphocytes # (Auto) 2.4 x10^3/uL (1.0-4.8) Monocytes # (Auto) 0.8 x10^3/uL (0.0-1.1) Eosinophils # (Auto) 0.1 x10^3/uL (0.0-0.7) Basophils # (Auto) 0.0 x10^3/uL (0.0-0.2) Sodium Level 137 mmol/L (136-145) Potassium Level 3.6 mmol/L (3.5-5.1) Chloride Level 98 mmol/L (98-107) Carbon Dioxide Level 26 mmol/L (21-32) Anion Gap 13 (6-14) Blood Urea Nitrogen 8 mg/dL (8-26) Creatinine 0.9 mg/dL (0.7-1.3) Estimated GFR (Cockcroft-Gault) 95.0 BUN/Creatinine Ratio 9 (6-20) Glucose Level 116 mg/dL (70-99) Calcium Level 9.1 mg/dL (8.5-10.1) Total Bilirubin 0.9 mg/dL (0.2-1.0) Aspartate Amino Transf (AST/SGOT) 48 U/L (15-37) Alanine Aminotransferase (ALT/SGPT) 56 U/L (16-63) Alkaline Phosphatase 71 U/L (46-116) Total Protein 8.2 g/dL (6.4-8.2) Albumin 3.5 g/dL (3.4-5.0) Albumin/Globulin Ratio 0.7 (1.0-1.7) Assessment and Plan Assessmemt and Plan Problems Medical Problems: (1) Alcohol abuse Status: Acute (2) Alcohol withdrawal Status: Acute Comment Review of Relevant I have reviewed the following items anthony (where applicable) has been applied. Labs Laboratory Tests Test 08/14/18 19:28 08/14/18 20:37 08/15/18 04:43 08/16/18 04:55 White Blood Count 9.3 x10^3/uL (4.0-11.0) 9.3 x10^3/uL (4.0-11.0) 7.9 x10^3/uL (4.0-11.0) Red Blood Count 5.20 x10^6/uL (4.30-5.70) 4.80 x10^6/uL (4.30-5.70) 5.29 x10^6/uL (4.30-5.70) Hemoglobin 17.2 g/dL (13.0-17.5) 15.9 g/dL (13.0-17.5) 17.2 g/dL (13.0-17.5) Hematocrit 48.3 % (39.0-53.0) 45.4 % (39.0-53.0) 49.6 % (39.0-53.0) Mean Corpuscular Volume 93 fL (79-100) 95 fL (79-100) 94 fL (79-100) Mean Corpuscular Hemoglobin 33 pg (25-35) 33 pg (25-35) 33 pg (25-35) Mean Corpuscular Hemoglobin Concent 36 g/dL (31-37) 35 g/dL (31-37) 35 g/dL (31-37) Red Cell Distribution Width 14.9 % (11.5-14.5) 15.2 % (11.5-14.5) 15.2 % (11.5-14.5) Platelet Count 169 x10^3/uL (140-400) 132 x10^3/uL (140-400) 138 x10^3/uL (140-400) Neutrophils (%) (Auto) 39 % (31-73) 62 % (31-73) 58 % (31-73) Lymphocytes (%) (Auto) 49 % (24-48) 28 % (24-48) 31 % (24-48) Monocytes (%) (Auto) 11 % (0-9) 9 % (0-9) 10 % (0-9) Eosinophils (%) (Auto) 0 % (0-3) 0 % (0-3) 1 % (0-3) Basophils (%) (Auto) 1 % (0-3) 0 % (0-3) 0 % (0-3) Neutrophils # (Auto) 3.6 x10^3uL (1.8-7.7) 5.8 x10^3uL (1.8-7.7) 4.6 x10^3uL (1.8-7.7) Lymphocytes # (Auto) 4.6 x10^3/uL (1.0-4.8) 2.6 x10^3/uL (1.0-4.8) 2.4 x10^3/uL (1.0-4.8) Monocytes # (Auto) 1.0 x10^3/uL (0.0-1.1) 0.9 x10^3/uL (0.0-1.1) 0.8 x10^3/uL (0.0-1.1) Eosinophils # (Auto) 0.0 x10^3/uL (0.0-0.7) 0.0 x10^3/uL (0.0-0.7) 0.1 x10^3/uL (0.0-0.7) Basophils # (Auto) 0.1 x10^3/uL (0.0-0.2) 0.0 x10^3/uL (0.0-0.2) 0.0 x10^3/uL (0.0-0.2) Prothrombin Time 13.9 SEC (11.7-14.0) Prothromb Time International Ratio 1.1 (0.8-1.1) Activated Partial Thromboplast Time 29 SEC (24-38) Sodium Level 138 mmol/L (136-145) 138 mmol/L (136-145) 137 mmol/L (136-145) Potassium Level 3.1 mmol/L (3.5-5.1) 3.1 mmol/L (3.5-5.1) 3.6 mmol/L (3.5-5.1) Chloride Level 95 mmol/L (98-107) 99 mmol/L (98-107) 98 mmol/L (98-107) Carbon Dioxide Level 21 mmol/L (21-32) 27 mmol/L (21-32) 26 mmol/L (21-32) Anion Gap 22 (6-14) 12 (6-14) 13 (6-14) Blood Urea Nitrogen 7 mg/dL (8-26) 4 mg/dL (8-26) 8 mg/dL (8-26) Creatinine 1.1 mg/dL (0.7-1.3) 1.1 mg/dL (0.7-1.3) 0.9 mg/dL (0.7-1.3) Estimated GFR (Cockcroft-Gault) 75.3 75.3 95.0 BUN/Creatinine Ratio 6 (6-20) 4 (6-20) 9 (6-20) Glucose Level 169 mg/dL (70-99) 105 mg/dL (70-99) 116 mg/dL (70-99) Calcium Level 9.5 mg/dL (8.5-10.1) 8.6 mg/dL (8.5-10.1) 9.1 mg/dL (8.5-10.1) Magnesium Level 1.5 mg/dL (1.8-2.4) Total Bilirubin 0.6 mg/dL (0.2-1.0) 0.8 mg/dL (0.2-1.0) 0.9 mg/dL (0.2-1.0) Aspartate Amino Transf (AST/SGOT) 77 U/L (15-37) 55 U/L (15-37) 48 U/L (15-37) Alanine Aminotransferase (ALT/SGPT) 55 U/L (16-63) 49 U/L (16-63) 56 U/L (16-63) Alkaline Phosphatase 73 U/L (46-116) 68 U/L (46-116) 71 U/L (46-116) Total Protein 8.7 g/dL (6.4-8.2) 8.0 g/dL (6.4-8.2) 8.2 g/dL (6.4-8.2) Albumin 4.0 g/dL (3.4-5.0) 3.4 g/dL (3.4-5.0) 3.5 g/dL (3.4-5.0) Albumin/Globulin Ratio 0.9 (1.0-1.7) 0.7 (1.0-1.7) 0.7 (1.0-1.7) Lipase 532 U/L (73-393) Ethyl Alcohol Level 48 mg/dL (0-10) Urine Collection Type Unknown Urine Color Mitzy Urine Clarity Clear Urine pH 6.5 Urine Specific [place] 1.025 Urine Protein 100 mg/dL (NEG-TRACE) Urine Glucose (UA) 100 mg/dL (NEG) Urine Ketones (Stick) 15 mg/dL (NEG) Urine Blood Trace (NEG) Urine Nitrite Negative (NEG) Urine Bilirubin Negative (NEG) Urine Urobilinogen Dipstick 0.2 mg/dL (0.2 mg/dL) Urine Leukocyte Esterase Negative (NEG) Urine RBC Occ /HPF (0-2) Urine WBC 1-4 /HPF (0-4) Urine Squamous Epithelial Cells Few /LPF Urine Bacteria Few /HPF (0-FEW) Urine Mucus Marked /LPF Urine Opiates Screen Neg (NEG) Urine Methadone Screen Neg (NEG) Urine Barbiturates Neg (NEG) Urine Phencyclidine Screen Neg (NEG) Urine Amphetamine/Methamphetamine Neg (NEG) Urine Benzodiazepines Screen Neg (NEG) Urine Cocaine Screen Neg (NEG) Urine Cannabinoids Screen Pos (NEG) Urine Ethyl Alcohol Pos (NEG) Laboratory Tests Test 08/16/18 04:55 White Blood Count 7.9 x10^3/uL (4.0-11.0) Red Blood Count 5.29 x10^6/uL (4.30-5.70) Hemoglobin 17.2 g/dL (13.0-17.5) Hematocrit 49.6 % (39.0-53.0) Mean Corpuscular Volume 94 fL (79-100) Mean Corpuscular Hemoglobin 33 pg (25-35) Mean Corpuscular Hemoglobin Concent 35 g/dL (31-37) Red Cell Distribution Width 15.2 % (11.5-14.5) Platelet Count 138 x10^3/uL (140-400) Neutrophils (%) (Auto) 58 % (31-73) Lymphocytes (%) (Auto) 31 % (24-48) Monocytes (%) (Auto) 10 % (0-9) Eosinophils (%) (Auto) 1 % (0-3) Basophils (%) (Auto) 0 % (0-3) Neutrophils # (Auto) 4.6 x10^3uL (1.8-7.7) Lymphocytes # (Auto) 2.4 x10^3/uL (1.0-4.8) Monocytes # (Auto) 0.8 x10^3/uL (0.0-1.1) Eosinophils # (Auto) 0.1 x10^3/uL (0.0-0.7) Basophils # (Auto) 0.0 x10^3/uL (0.0-0.2) Sodium Level 137 mmol/L (136-145) Potassium Level 3.6 mmol/L (3.5-5.1) Chloride Level 98 mmol/L (98-107) Carbon Dioxide Level 26 mmol/L (21-32) Anion Gap 13 (6-14) Blood Urea Nitrogen 8 mg/dL (8-26) Creatinine 0.9 mg/dL (0.7-1.3) Estimated GFR (Cockcroft-Gault) 95.0 BUN/Creatinine Ratio 9 (6-20) Glucose Level 116 mg/dL (70-99) Calcium Level 9.1 mg/dL (8.5-10.1) Total Bilirubin 0.9 mg/dL (0.2-1.0) Aspartate Amino Transf (AST/SGOT) 48 U/L (15-37) Alanine Aminotransferase (ALT/SGPT) 56 U/L (16-63) Alkaline Phosphatase 71 U/L (46-116) Total Protein 8.2 g/dL (6.4-8.2) Albumin 3.5 g/dL (3.4-5.0) Albumin/Globulin Ratio 0.7 (1.0-1.7) Medications Current Medications Sodium Chloride 1,000 ml @ 1,000 mls/hr 1X ONCE IV Last administered on at 20:20; Start 08/14/18 at 20:15; Stop 08/14/18 at 21:14; Status DC Multivitamins 10 ml/Thiamine HCl 100 mg/Folic Acid 1 mg/Sodium Chloride 1,011.2 ml @ 1,000.088 mls/hr 1X ONCE IV Last administered on 08/14/18at 20:43; Start 08/14/18 at 20:30; Stop 08/14/18 at 21:30; Status DC Lorazepam (Ativan) 1 mg 1X ONCE IV Last administered on 08/14/18at 20:20; Start 08/14/18 at 20:15; Stop 08/14/18 at 20:16; Status DC Ondansetron HCl (Zofran) 4 mg 1X ONCE IV Last administered on 08/14/18at 21:31 ; Start 08/14/18 at 20:45; Stop 08/14/18 at 20:49; Status DC Lorazepam (Ativan) 1 mg 1X ONCE IV Last administered on 08/14/18at 21:31; Start 08/14/18 at 20:45; Stop 08/14/18 at 20:49; Status DC Ondansetron HCl (Zofran) 4 mg PRN Q6HRS PRN IV NAUSEA/VOMITING Last administered on 08/15/18at 19:53; Start 08/14/18 at 22:45; Stop 08/15/18 at 22:44 ; Status DC Influenza Virus Vaccine (Afluria Trivalent [id number] Syringe) 0.5 ml ONCE ONCE VAX IM Last administered on 08/15/18at 08:32; Start 08/15/18 at 09:00; Stop at 09:01; Status DC Info (FLU VACCINE SCREEN per RX) 1 each PRN 1X PRN MC SEE COMMENTS; Start 08/14 at 23:45; Status Cancel Chlordiazepoxide (Librium) 50 mg PRN Q1HR PRN PO For CIWA 8-14 Last administered on 08/16/18at 07:40; Start 08/15/18 at 02:30 Chlordiazepoxide (Librium) 100 mg PRN Q1HR PRN PO For CIWA 15 or greater; Start 08/15/18 at 02:30 Lorazepam (Ativan) 2 mg PRN Q1HR PRN IV For CIWA 8-14 Last administered on 08/16at 06:51; Start 08/15/18 at 02:30 Lorazepam (Ativan) 4 mg PRN Q1HR PRN IV For CIWA 15 or greater Last administered on 08/15/18at 19:54; Start 08/15/18 at 02:30 Clonidine HCl (Catapres) 0.1 mg PRN Q1HR PRN PO SBP > 180 or DBP > 100, MRX3 Last administered on 08/16/18at 07:40; Start 08/15/18 at 02:30 Ibuprofen (Motrin) 600 mg PRN Q8HRS PRN PO INFLAMMATION Last administered on at 19:54; Start 08/15/18 at 08:00 Multivitamins 10 ml/Thiamine HCl 100 mg/Folic Acid 1 mg/Sodium Chloride 1,011.2 ml @ 1,000.088 mls/hr 1X ONCE IV Last administered on 08/15/18at 14:20; Start 08/15/18 at 14:30; Stop 08/15/18 at 15:30; Status DC Pantoprazole Sodium (PROTONIX VIAL for IV PUSH) 40 mg DAILYAC IVP Last administered on 08/16/18at 07:23; Start 08/16/18 at 07:30 Ondansetron HCl (Zofran) 4 mg PRN Q4HRS PRN IV NAUSEA/VOMITING Last administered on 08/16/18at 06:51; Start 08/16/18 at 07:00 Ondansetron HCl (Zofran) 4 mg STK-MED ONCE .ROUTE ; Start 08/16/18 at 06:48; Stop 08/16/18 at 06:49; Status DC Active Scripts Active Reported Lisinopril 20 Mg Tablet 1 Tab PO DAILY Vitals/I & O Vital Sign - Last 24 Hours 08/15/18 08/15/18 08/15/18 08/15/18 09:54 11:00 15:00 15:59 Temp 98.3 97.9 98.3 97.9 Pulse 80 91 73 73 Resp 18 16 B/P (MAP) 148/108 150/97 (114) 144/102 (116) 144/102 Pulse Ox 95 94 O2 Delivery Room Air Room Air 08/15/18 08/15/18 08/15/18 08/15/18 19:00 19:43 19:54 23:00 Temp 97.5 96.5 97.5 96.5 Pulse 66 66 81 Resp 20 20 B/P (MAP) 152/106 (121) 152/106 138/85 (102) Pulse Ox 95 96 O2 Delivery Room Air Room Air Room Air 08/16/18 08/16/18 08/16/18 03:00 07:00 07:40 Temp 96.8 96.4 96.8 96.4 Pulse 89 91 91 Resp 20 20 B/P (MAP) 137/106 (116) 142/103 (116) 142/103 Pulse Ox 92 97 O2 Delivery Room Air Room Air Intake and Output 08/15/18 08/15/18 08/16/18 15:00 23:00 07:00 Intake Total 1491.2 ml Output Total 300 ml 500 ml 2320 ml Balance -300 ml 991.2 ml -2320 ml GREYSON RIVERA MD Aug 16, 2018 09:27
[2018-08-16 11:00] VITALS: BP 143/83
[2018-08-16 15:00] VITALS: BP 142/98
--- NOTE | 2018-08-16 17:04 | PDOC3 ---
Discharge Summary Date of Admission: Aug 14, 2018 Date of Discharge: Aug 16, 2018 Follow-Up: 3-5 days Admitting Diagnosis comment: discharge diagnosis======== Assessment/Plan IMPRESSION 1. Situational depression 2. alcohol abuse 3. morbid obesity 4. hypertension 5. thc abuse calm shaking less plan 1. alcohol withdrawal precautions 2. bp control 3. banana bag 4. refer for alcohol dependency TREATMENT 5. scd's 6. iv protonix gi prophylaxis Vitals Vitals Vital Signs Date Time Temp Pulse Resp B/P (MAP) Pulse Ox O2 Delivery O2 Flow Rate FiO2 08/16/18 07:40 91 142/103 08/16/18 07:00 96.4 20 97 Room Air 96.4 Physical Exam General: Oriented X3, Cooperative Heart: Regular rate, Normal S1, Normal S2 Lungs: Clear Abdomen: Normal bowel sounds, Soft Extremities: No clubbing, No cyanosis Skin: No significant lesion FINAL DIAGNOSIS Problems Medical Problems: (1) Alcohol abuse Status: Acute (2) Alcohol withdrawal Status: Acute Brief Hospital Course Mr. Graham is a 38 old [sex] who presented with [alcohol abuse ] CONDITION AT DISCHARGE: Improved Discharge Medications Current Medications Sodium Chloride 1,000 ml @ 1,000 mls/hr 1X ONCE IV Last administered on at 20:20; Start 08/14/18 at 20:15; Stop 08/14/18 at 21:14; Status DC Multivitamins 10 ml/Thiamine HCl 100 mg/Folic Acid 1 mg/Sodium Chloride 1,011.2 ml @ 1,000.088 mls/hr 1X ONCE IV Last administered on 08/14/18at 20:43; Start 08/14/18 at 20:30; Stop 08/14/18 at 21:30; Status DC Lorazepam (Ativan) 1 mg 1X ONCE IV Last administered on 08/14/18at 20:20; Start 08/14/18 at 20:15; Stop 08/14/18 at 20:16; Status DC Ondansetron HCl (Zofran) 4 mg 1X ONCE IV Last administered on 08/14/18at 21:31 ; Start 08/14/18 at 20:45; Stop 08/14/18 at 20:49; Status DC Lorazepam (Ativan) 1 mg 1X ONCE IV Last administered on 08/14/18at 21:31; Start 08/14/18 at 20:45; Stop 08/14/18 at 20:49; Status DC Ondansetron HCl (Zofran) 4 mg PRN Q6HRS PRN IV NAUSEA/VOMITING Last administered on 08/15/18at 19:53; Start 08/14/18 at 22:45; Stop 08/15/18 at 22:44 ; Status DC Influenza Virus Vaccine (Afluria Trivalent [id number] Syringe) 0.5 ml ONCE ONCE VAX IM Last administered on 08/15/18at 08:32; Start 08/15/18 at 09:00; Stop at 09:01; Status DC Info (FLU VACCINE SCREEN per RX) 1 each PRN 1X PRN MC SEE COMMENTS; Start 08/14 at 23:45; Status Cancel Chlordiazepoxide (Librium) 50 mg PRN Q1HR PRN PO For CIWA 8-14 Last administered on 08/16/18at 07:40; Start 08/15/18 at 02:30 Chlordiazepoxide (Librium) 100 mg PRN Q1HR PRN PO For CIWA 15 or greater; Start 08/15/18 at 02:30 Lorazepam (Ativan) 2 mg PRN Q1HR PRN IV For CIWA 8-14 Last administered on 08/16at 06:51; Start 08/15/18 at 02:30 Lorazepam (Ativan) 4 mg PRN Q1HR PRN IV For CIWA 15 or greater Last administered on 08/15/18at 19:54; Start 08/15/18 at 02:30 Clonidine HCl (Catapres) 0.1 mg PRN Q1HR PRN PO SBP > 180 or DBP > 100, MRX3 Last administered on 08/16/18at 07:40; Start 08/15/18 at 02:30 Ibuprofen (Motrin) 600 mg PRN Q8HRS PRN PO INFLAMMATION Last administered on 19:54; Start 08/15/18 at 08:00 Multivitamins 10 ml/Thiamine HCl 100 mg/Folic Acid 1 mg/Sodium Chloride 1,011.2 ml @ 1,000.088 mls/hr 1X ONCE IV Last administered on 08/15/18at 14:20; Start 08/15/18 at 14:30; Stop 08/15/18 at 15:30; Status DC Pantoprazole Sodium (PROTONIX VIAL for IV PUSH) 40 mg DAILYAC IVP Last administered on 08/16/18at 07:23; Start 08/16/18 at 07:30 Ondansetron HCl (Zofran) 4 mg PRN Q4HRS PRN IV NAUSEA/VOMITING Last administered on 08/16/18at 06:51; Start 08/16/18 at 07:00 Ondansetron HCl (Zofran) 4 mg STK-MED ONCE .ROUTE ; Start 08/16/18 at 06:48; Stop 08/16/18 at 06:49; Status DC Active Scripts Active Reported Lisinopril 20 Mg Tablet 1 Tab PO DAILY Vital Signs Vital Signs Date Time Temp Pulse Resp B/P (MAP) Pulse Ox O2 Delivery O2 Flow Rate FiO2 08/16/18 15:00 96.1 97 18 142/98 (113) 96 Room Air 96.1 Labs Laboratory Tests Test 08/14/18 19:28 08/14/18 20:37 08/15/18 04:43 08/16/18 04:55 White Blood Count 9.3 x10^3/uL (4.0-11.0) 9.3 x10^3/uL (4.0-11.0) 7.9 x10^3/uL (4.0-11.0) Red Blood Count 5.20 x10^6/uL (4.30-5.70) 4.80 x10^6/uL (4.30-5.70) 5.29 x10^6/uL (4.30-5.70) Hemoglobin 17.2 g/dL (13.0-17.5) 15.9 g/dL (13.0-17.5) 17.2 g/dL (13.0-17.5) Hematocrit 48.3 % (39.0-53.0) 45.4 % (39.0-53.0) 49.6 % (39.0-53.0) Mean Corpuscular Volume 93 fL (79-100) 95 fL (79-100) 94 fL (79-100) Mean Corpuscular Hemoglobin 33 pg (25-35) 33 pg (25-35) 33 pg (25-35) Mean Corpuscular Hemoglobin Concent 36 g/dL (31-37) 35 g/dL (31-37) 35 g/dL (31-37) Red Cell Distribution Width 14.9 % (11.5-14.5) 15.2 % (11.5-14.5) 15.2 % (11.5-14.5) Platelet Count 169 x10^3/uL (140-400) 132 x10^3/uL (140-400) 138 x10^3/uL (140-400) Neutrophils (%) (Auto) 39 % (31-73) 62 % (31-73) 58 % (31-73) Lymphocytes (%) (Auto) 49 % (24-48) 28 % (24-48) 31 % (24-48) Monocytes (%) (Auto) 11 % (0-9) 9 % (0-9) 10 % (0-9) Eosinophils (%) (Auto) 0 % (0-3) 0 % (0-3) 1 % (0-3) Basophils (%) (Auto) 1 % (0-3) 0 % (0-3) 0 % (0-3) Neutrophils # (Auto) 3.6 x10^3uL (1.8-7.7) 5.8 x10^3uL (1.8-7.7) 4.6 x10^3uL (1.8-7.7) Lymphocytes # (Auto) 4.6 x10^3/uL (1.0-4.8) 2.6 x10^3/uL (1.0-4.8) 2.4 x10^3/uL (1.0-4.8) Monocytes # (Auto) 1.0 x10^3/uL (0.0-1.1) 0.9 x10^3/uL (0.0-1.1) 0.8 x10^3/uL (0.0-1.1) Eosinophils # (Auto) 0.0 x10^3/uL (0.0-0.7) 0.0 x10^3/uL (0.0-0.7) 0.1 x10^3/uL (0.0-0.7) Basophils # (Auto) 0.1 x10^3/uL (0.0-0.2) 0.0 x10^3/uL (0.0-0.2) 0.0 x10^3/uL (0.0-0.2) Prothrombin Time 13.9 SEC (11.7-14.0) Prothromb Time International Ratio 1.1 (0.8-1.1) Activated Partial Thromboplast Time 29 SEC (24-38) Sodium Level 138 mmol/L (136-145) 138 mmol/L (136-145) 137 mmol/L (136-145) Potassium Level 3.1 mmol/L (3.5-5.1) 3.1 mmol/L (3.5-5.1) 3.6 mmol/L (3.5-5.1) Chloride Level 95 mmol/L (98-107) 99 mmol/L (98-107) 98 mmol/L (98-107) Carbon Dioxide Level 21 mmol/L (21-32) 27 mmol/L (21-32) 26 mmol/L (21-32) Anion Gap 22 (6-14) 12 (6-14) 13 (6-14) Blood Urea Nitrogen 7 mg/dL (8-26) 4 mg/dL (8-26) 8 mg/dL (8-26) Creatinine 1.1 mg/dL (0.7-1.3) 1.1 mg/dL (0.7-1.3) 0.9 mg/dL (0.7-1.3) Estimated GFR (Cockcroft-Gault) 75.3 75.3 95.0 BUN/Creatinine Ratio 6 (6-20) 4 (6-20) 9 (6-20) Glucose Level 169 mg/dL (70-99) 105 mg/dL (70-99) 116 mg/dL (70-99) Calcium Level 9.5 mg/dL (8.5-10.1) 8.6 mg/dL (8.5-10.1) 9.1 mg/dL (8.5-10.1) Magnesium Level 1.5 mg/dL (1.8-2.4) Total Bilirubin 0.6 mg/dL (0.2-1.0) 0.8 mg/dL (0.2-1.0) 0.9 mg/dL (0.2-1.0) Aspartate Amino Transf (AST/SGOT) 77 U/L (15-37) 55 U/L (15-37) 48 U/L (15-37) Alanine Aminotransferase (ALT/SGPT) 55 U/L (16-63) 49 U/L (16-63) 56 U/L (16-63) Alkaline Phosphatase 73 U/L (46-116) 68 U/L (46-116) 71 U/L (46-116) Total Protein 8.7 g/dL (6.4-8.2) 8.0 g/dL (6.4-8.2) 8.2 g/dL (6.4-8.2) Albumin 4.0 g/dL (3.4-5.0) 3.4 g/dL (3.4-5.0) 3.5 g/dL (3.4-5.0) Albumin/Globulin Ratio 0.9 (1.0-1.7) 0.7 (1.0-1.7) 0.7 (1.0-1.7) Lipase 532 U/L (73-393) Ethyl Alcohol Level 48 mg/dL (0-10) Urine Collection Type Unknown Urine Color Mitzy Urine Clarity Clear Urine pH 6.5 Urine Specific [place] 1.025 Urine Protein 100 mg/dL (NEG-TRACE) Urine Glucose (UA) 100 mg/dL (NEG) Urine Ketones (Stick) 15 mg/dL (NEG) Urine Blood Trace (NEG) Urine Nitrite Negative (NEG) Urine Bilirubin Negative (NEG) Urine Urobilinogen Dipstick 0.2 mg/dL (0.2 mg/dL) Urine Leukocyte Esterase Negative (NEG) Urine RBC Occ /HPF (0-2) Urine WBC 1-4 /HPF (0-4) Urine Squamous Epithelial Cells Few /LPF Urine Bacteria Few /HPF (0-FEW) Urine Mucus Marked /LPF Urine Opiates Screen Neg (NEG) Urine Methadone Screen Neg (NEG) Urine Barbiturates Neg (NEG) Urine Phencyclidine Screen Neg (NEG) Urine Amphetamine/Methamphetamine Neg (NEG) Urine Benzodiazepines Screen Neg (NEG) Urine Cocaine Screen Neg (NEG) Urine Cannabinoids Screen Pos (NEG) Urine Ethyl Alcohol Pos (NEG) Vitamin B12 Level 658 pg/mL (247-911) Laboratory Tests Test 08/16/18 04:55 White Blood Count 7.9 x10^3/uL (4.0-11.0) Red Blood Count 5.29 x10^6/uL (4.30-5.70) Hemoglobin 17.2 g/dL (13.0-17.5) Hematocrit 49.6 % (39.0-53.0) Mean Corpuscular Volume 94 fL (79-100) Mean Corpuscular Hemoglobin 33 pg (25-35) Mean Corpuscular Hemoglobin Concent 35 g/dL (31-37) Red Cell Distribution Width 15.2 % (11.5-14.5) Platelet Count 138 x10^3/uL (140-400) Neutrophils (%) (Auto) 58 % (31-73) Lymphocytes (%) (Auto) 31 % (24-48) Monocytes (%) (Auto) 10 % (0-9) Eosinophils (%) (Auto) 1 % (0-3) Basophils (%) (Auto) 0 % (0-3) Neutrophils # (Auto) 4.6 x10^3uL (1.8-7.7) Lymphocytes # (Auto) 2.4 x10^3/uL (1.0-4.8) Monocytes # (Auto) 0.8 x10^3/uL (0.0-1.1) Eosinophils # (Auto) 0.1 x10^3/uL (0.0-0.7) Basophils # (Auto) 0.0 x10^3/uL (0.0-0.2) Sodium Level 137 mmol/L (136-145) Potassium Level 3.6 mmol/L (3.5-5.1) Chloride Level 98 mmol/L (98-107) Carbon Dioxide Level 26 mmol/L (21-32) Anion Gap 13 (6-14) Blood Urea Nitrogen 8 mg/dL (8-26) Creatinine 0.9 mg/dL (0.7-1.3) Estimated GFR (Cockcroft-Gault) 95.0 BUN/Creatinine Ratio 9 (6-20) Glucose Level 116 mg/dL (70-99) Calcium Level 9.1 mg/dL (8.5-10.1) Total Bilirubin 0.9 mg/dL (0.2-1.0) Aspartate Amino Transf (AST/SGOT) 48 U/L (15-37) Alanine Aminotransferase (ALT/SGPT) 56 U/L (16-63) Alkaline Phosphatase 71 U/L (46-116) Total Protein 8.2 g/dL (6.4-8.2) Albumin 3.5 g/dL (3.4-5.0) Albumin/Globulin Ratio 0.7 (1.0-1.7) Vitamin B12 Level 658 pg/mL (247-911) Allergies Allergies Coded Allergies Type Severity Reaction Last Updated Verified No Known Drug Allergies 08/14/18 No Disposition/Orders: D/C to Home Patient Instructions d/c planning 31 min GREYSON RIVERA MD Aug 16, 2018 17:04
--- NOTE | 2018-08-16 17:05 | DISCH ---
DISCHARGE INSTRUCTIONS Condition on Discharge Condition on Discharge: Guarded Activity After Discharge Activity Instructions for Disc: Activity as tolerated Lifting Instructions after Dis: No heavy lifting, No pulling or pushing Exercise Instruction after Dis: Walk 10 min, 3 x per day Driving Instructions after Dis: Do not drive Diet after Discharge Diet after Discharge: Regular Checks after Discharge Checks after discharge: Check blood press - daily Contacting the DRToni after DC Call your doctor for: If your condition worsens Warfarin Follow-Up Warfarin Follow UP: see pcp in 2-3 days, ATTEND AA DAILY GREYSON RIVERA MD Aug 16, 2018 17:05
[2018-08-16] MEDS ORDERED: THIA100T8 PO (17:07)
[2018-08-16] MEDS ORDERED: PANT40VI IVP (17:07)
[2018-08-16] MEDS ORDERED: FOLI1TAB16 PO (17:08)
[2018-08-16] MEDS: IBUPROFEN 200 MG TABLET. PO PRN (17:33)
[2018-08-17 03:17] LABS: HEMOGLOBIN A1C 6.3 % (4.8-5.6)
== END 2018-08-16 19:20 | disposition home or self-care (01) | DRG 897 ==
LOC: ER 19:00 → 5 NORTH 21:26
PROVIDERS: ADMIT Internal Medicine; ATTEND Internal Medicine
DX: F10.10 Alcohol abuse, uncomplicated (principal); F43.21 Adjustment disorder with depressed mood; E78.5 Hyperlipidemia, unspecified; F41.9 Anxiety disorder, unspecified; Z81.8 Family history of other mental and behavioral disorders; F17.210 Nicotine dependence, cigarettes, uncomplicated; E66.01 Morbid (severe) obesity due to excess calories; I10 Essential (primary) hypertension; F12.10 Cannabis abuse, uncomplicated; Z68.33 Body mass index [BMI] 33.0-33.9, adult
CPT/HCPCS: 36415; 80053; 80307; 81001; 82607; 83036; 83690; 83735; 85025; 85610; 85730; 90471; 90756; 93005; 96374; 96375; 96376; C9113; G0480; J2060; J2405; J7030; 99285-25; G0479; Q2035

== ENCOUNTER 2021-11-28 13:22 | Emergency (ER) | payer SELFPAY ==
[2021-04-06 15:00] VITALS: BP 136/107
[~2021-11-28 13:22] MED LIST: ACET325T9 PO; AMLO-186 PO; FOLI1TAB16 PO; Folic Acid PO; GABA-585 PO; INSU100V35 SQ; LISI10TA16 PO; LISI20TA18 PO; Lido:Maalox 1:1 PO; MAG30ORA2 PO; MULT1TAB92 PO; PANT40TA77 PO; PANT40VI IVP; POTA-121 PO; THIA100T22 PO; THIA100T8 PO
== END 2021-11-28 16:29 | disposition left against medical advice (07) ==
LOC: ER 13:22
DX: R10.9 Unspecified abdominal pain (principal); R11.2 Nausea with vomiting, unspecified; R07.89 Other chest pain; F10.20 Alcohol dependence, uncomplicated; Y90.9 Presence of alcohol in blood, level not specified; Z53.21 Procedure and treatment not carried out due to patient leaving prior to being seen by health care provider

== ENCOUNTER 2021-11-30 01:02 | Inpatient (IN) | payer SELFPAY ==
[~2021-11-30] VITALS: Ht 177.8 cm; Wt 106.8 kg
--- NOTE | 2021-11-30 01:34 | ED.ADGEN ---
Past Medical History Past Medical History: Hypertension, Other Additional Past Medical Histor: etoh Past Surgical History: Other Additional Past Surgical Histo: HERNIA REPAIR Smoking Status: Never Smoker Alcohol Use: Heavy Drug Use: Marijuana General Adult EDM: Chief Complaint: ALCOHOL INTOXICATION HPI: HPI: Patient is a 41 year old male coming in for chest. Patient has a history of alcohol dependence but has been sober for the past 7 to 8 months, patient states that New Year's (10 days ago) he started drinking and had his "drink gallons of vodka". Patient states he had 12 beers yesterday but last drink was about 13 hours prior to arrival. Emesis is nonbloody or bilious. Is also complaining of chest tightness. Denies any cardiac history. Patient states he also does marijuana but denies any other drugs or tobacco. Review of Systems: Review of Systems: All other systems within normal limits except for as noted in the HPI Current Medications: Current Medications Medications (Trade) Dose Ordered Sig/[place] Start Time Stop Time Status Last Admin Dose Admin Acetaminophen (Tylenol) 650 mg PRN Q4HRS PRN 11/30/21 03:15 12/01/21 03:14 Fentanyl Citrate (Fentanyl 2ml Vial) 50 mcg PRN Q1HR PRN 11/30/21 03:15 12/01/21 03:14 Folic Acid (Folic Acid) 1 mg DAILY 12/01/21 09:00 Haloperidol Lactate (Haldol Inj) 5 mg PRN Q4HRS PRN 11/30/21 03:15 Lorazepam (Ativan Inj) 4 mg PRN Q1HR PRN 11/30/21 03:15 11/30/21 04:46 4 MG Lorazepam (Ativan) 8 mg PRN Q1HR PRN 11/30/21 03:15 Multivitamins (Thera M Plus) 1 tab DAILY 12/01/21 09:00 Multivitamins 10 ml/Thiamine HCl 100 mg/Folic Acid 1 mg/Sodium Chloride 1,011.2 ml @ 1,000.088 mls/hr 1X ONCE 11/30/21 03:45 11/30/21 04:45 DC 11/30/21 04:35 1,000.088 MLS/HR Ondansetron HCl (Zofran) 4 mg PRN Q8HRS PRN 11/30/21 03:15 12/01/21 03:14 11/30/21 04:31 4 MG Potassium Bicarbonate (Potassium Effervescent Tablet) 40 meq 1X ONCE 11/30/21 02:30 11/30/21 02:32 DC 11/30/21 02:52 40 MEQ Potassium Chloride/Water 100 ml @ 100 mls/hr Q1H 11/30/21 02:45 11/30/21 06:44 11/30/21 04:24 100 MLS/HR Sodium Chloride 1,000 ml @ 100 mls/hr Q10H 11/30/21 03:00 12/01/21 02:59 Thiamine Mononitrate (Vitamin B-1) 100 mg DAILY 12/01/21 09:00 Allergies: Allergies: Allergies Coded Allergies Type Severity Reaction Last Updated Verified No Known Drug Allergies 11/30/21 No Physical Exam: PE: Constitutional: Well developed, well nourished, no acute distress, non-toxic appearance. [] HENT: Normocephalic, atraumatic, bilateral external ears normal, nose normal. [] Eyes: PERRLA, conjunctiva normal, no discharge. [] Neck: No rigidity, supple, no stridor. [] Cardiovascular: Regular rate and rhythm, brisk cap refill [] Lungs & Thorax: Non labored symmetric respirations, no tachypnea or respiratory distress [] Abdomen: Soft, nondistended, epigastric tenderness to palpation. Skin: Warm, dry, no erythema, no rash. [] Back: Unremarkable Extremities: No deformities, range of motion grossly intact, no lower extremity edema [] Neurologic: Alert and oriented X 3, no focal deficits noted. [] Psychologic: Affect normal, judgement normal, mood normal. [] Current Patient Data: Labs: Laboratory Tests Test 11/30/21 01:48 11/30/21 01:51 White Blood Count 5.6 x10^3/uL (4.0-11.0) Red Blood Count 5.13 x10^6/uL (4.30-5.70) Hemoglobin 15.4 g/dL (13.0-17.5) Hematocrit 44.3 % (39.0-53.0) Mean Corpuscular Volume 87 fL (79-100) Mean Corpuscular Hemoglobin 30 pg (25-35) Mean Corpuscular Hemoglobin Concent 35 g/dL (31-37) Red Cell Distribution Width 14.2 % (11.5-14.5) Platelet Count 84 x10^3/uL (140-400) L Neutrophils (%) (Auto) 64 % (31-73) Lymphocytes (%) (Auto) 24 % (24-48) Monocytes (%) (Auto) 11 % (0-9) H Eosinophils (%) (Auto) 0 % (0-3) Basophils (%) (Auto) 1 % (0-3) Neutrophils # (Auto) 3.6 x10^3/uL (1.8-7.7) Lymphocytes # (Auto) 1.3 x10^3/uL (1.0-4.8) Monocytes # (Auto) 0.6 x10^3/uL (0.0-1.1) Eosinophils # (Auto) 0.0 x10^3/uL (0.0-0.7) Basophils # (Auto) 0.0 x10^3/uL (0.0-0.2) Sodium Level 129 mmol/L (136-145) L Potassium Level 2.4 mmol/L (3.5-5.1) *L Chloride Level 89 mmol/L (98-107) L Carbon Dioxide Level 30 mmol/L (21-32) Anion Gap 10 (6-14) Blood Urea Nitrogen 7 mg/dL (8-26) L Creatinine 0.8 mg/dL (0.7-1.3) Estimated GFR (Cockcroft-Gault) 107.1 BUN/Creatinine Ratio 9 (6-20) Glucose Level 212 mg/dL (70-99) H Calcium Level 7.9 mg/dL (8.5-10.1) L Phosphorus Level 2.6 mg/dL (2.6-4.7) Magnesium Level 1.4 mg/dL (1.8-2.4) L Total Bilirubin 0.6 mg/dL (0.2-1.0) Aspartate Amino Transferase (AST) 80 U/L (15-37) H Alanine Aminotransferase (ALT) 133 U/L (16-63) H Alkaline Phosphatase 77 U/L (46-116) Troponin I High Sensitivity 15 ng/L (4-75) VH-Qpz-X-Type Natriuretic Peptide 11 pg/mL (0-124) Total Protein 7.6 g/dL (6.4-8.2) Albumin 3.4 g/dL (3.4-5.0) Albumin/Globulin Ratio 0.8 (1.0-1.7) L Lipase 588 U/L (73-393) H Ethyl Alcohol Level 103 mg/dL (0-10) H SARS-CoV-2 Antigen (Rapid) Negative (NEGATIVE) Laboratory Tests 11/30/21 01:48 Laboratory Tests 11/30/21 01:48 Vital Signs: Vital Signs Date Time Temp Pulse Resp B/P (MAP) Pulse Ox O2 Delivery O2 Flow Rate FiO2 11/30/21 01:06 98.5 100 21 163/100 (121) 97 Room Air 98.5 EKG: EKG: [] Heart Score: C/O Chest Pain: No HEART Score for Chest Pain: HEART Score for Chest Pain Response (Comments) Value History Slighlty/Non-Suspicious 0 ECG Normal 0 Age < 45 0 Risk Factors 1 or 2 Risk Factors 1 Troponin < Normal Limit 0 Total 1 Risk Factors: Risk Factors: DM, Current or recent (<one month) smoker, HTN, HLP, family history of CAD, obesity. Risk Scores: Score 0 - 3: 2.5% MACE over next 6 weeks - Discharge Home Score 4 - 6: 20.3% MACE over next 6 weeks - Admit for Clinical Observation Score 7 - 10: 72.7% MACE over next 6 weeks - Early Invasive Strategies Radiology/Procedures: Radiology/Procedures: [facility] [address] [place] [address] IMAGING REPORT Signed PATIENT: NICHOLAS FELIZ ACCOUNT: [id number] : 1980 LOCATION: ER AGE: 41 SEX: M EXAM STATUS: REG ER ORD. PHYSICIAN: FERNY MIN MD REASON: chest pain PROCEDURE: CHEST AP ONLY XR CHEST 1V History: Reason: chest pain / Spl. Instructions: / History: Comparison: October 15, 2019 Findings: No consolidation or pleural effusion. Normal heart size. No pneumothorax. Impression: 1. No acute cardiopulmonary process. Electronically signed by: Imer Lan DO (11/30/2021 3:13 AM) [facility] DICTATED and SIGNED BY: IMER LAN DO DATE: 11/30/21 [id number] [] Course & Med Decision Making: Course & Med Decision Making Pertinent Labs and Imaging studies reviewed. (See chart for details) Patient showing signs of alcohol withdrawal, patient having loose Nations in emergency department. CIWA score of 19. Admitted for hypokalemia and alcohol withdrawal. Had PAT evaluation emergency department and they will continue to follow patient. [] Dragon Disclaimer: Dragon Disclaimer: This electronic medical record was generated, in whole or in part, using a voice recognition dictation system. Departure Departure Impression: Primary Impression: Alcohol withdrawal Additional Impression: Hypokalemia Disposition: ADMITTED INPATIENT Admitting Physician: HIMJakub Condition: GUARDED Referrals: NO PCP (PCP) Problem Qualifiers FERNY MIN MD Nov 30, 2021 01:34
[2021-11-30] MEDS ORDERED: ONDANSETRON PF 4 MG/2 ML VIAL. IVP ONE (01:45)
[2021-11-30] MEDS ORDERED: IV NORMAL SALINE 1000ML BAG 1,000 ML IV ONE (01:45)
[2021-11-30 02:05] LABS: BASO % 1 % (0-3); EOS % 0 % (0-3); HEMATOCRIT 44.3 % (39.0-53.0); HEMOGLOBIN 15.4 g/dL (13.0-17.5); LYMPH # 1.3 x10^3/uL (1.0-4.8); LYMPH % 24 % (24-48); MEAN CORPUSCULAR HEMOGLOBIN 30 pg (25-35); MEAN CORPUSCULAR HGB CONC 35 g/dL (31-37); MEAN CORPUSCULAR VOLUME 87 fL (79-100); MONO # 0.6 x10^3/uL (0.0-1.1); MONO % 11 % (0-9); NEUT # 3.6 x10^3/uL (1.8-7.7); NEUT % 64 % (31-73); PLATELET COUNT 84 x10^3/uL (140-400); RED BLOOD COUNT 5.13 x10^6/uL (4.30-5.70); RED CELL DISTRIBUTION WIDTH 14.2 % (11.5-14.5); WHITE BLOOD COUNT 5.6 x10^3/uL (4.0-11.0)
[2021-11-30 02:20] LABS: ALBUMIN 3.4 g/dL (3.4-5.0); ALBUMIN/GLOBULIN RATIO 0.8 (1.0-1.7); CALCIUM 7.9 mg/dL (8.5-10.1); CREATININE 0.8 mg/dL (0.7-1.3); GFR 107.1; MAGNESIUM 1.4 mg/dL (1.8-2.4); PHOSPHORUS 2.6 mg/dL (2.6-4.7); TOTAL BILIRUBIN 0.6 mg/dL (0.2-1.0); TOTAL PROTEIN 7.6 g/dL (6.4-8.2)
[2021-11-30 02:22] LABS: POTASSIUM 2.4 mmol/L (3.5-5.1)
[2021-11-30] MEDS ORDERED: POTASSIUM CHLORIDE 20MEQ 100 ML IV SCH (02:30)
[2021-11-30] MEDS ORDERED: POTASSIUM BICARB 20 MEQ EFFERVESCENT TABLET. PO ONE (02:30)
[2021-11-30] MEDS: POTASSIUM CHLORIDE 10MEQ 100 ML IV SCH ×4 (02:52→07:33)
[2021-11-30] MEDS ORDERED: HALOPERIDOL LACTATE 5 MG/ML VIAL. IVP PRN (03:15)
[2021-11-30] MEDS ORDERED: fentaNYL PF VIAL 100 MCG/2 ML VIAL IVP PRN (03:15)
[2021-11-30] MEDS ORDERED: ACETAMINOPHEN 325 MG TABLET. PO PRN (03:15)
--- NOTE | 2021-11-30 03:15 | RAD ---
XR CHEST 1V History: Reason: chest pain / Spl. Instructions: / History: Comparison: October 15, 2019 Findings: No consolidation or pleural effusion. Normal heart size. No pneumothorax. Impression: 1. No acute cardiopulmonary process. Electronically signed by: Imer Minor DO (11/30/2021 3:13 AM) [facility]
[2021-11-30] MEDS ORDERED: MULTIVIT INFUSN,ADULT 4,VIT K 10 ML, THIAMINE INJ 100 MG, FOLIC ACID INJ 1 MG in IV NOR... IV ONE (03:45)
[2021-11-30] MEDS: ONDANSETRON PF 4 MG/2 ML VIAL. IVP PRN ×2 (04:31→18:50)
[2021-11-30 06:33] LABS: BILIRUBIN,URINE NEGATIVE (NEG); CLARITY,URINE CLEAR; COLOR,URINE YELLOW; NITRITE,URINE NEGATIVE (NEG); PROTEIN,URINE 100 mg/dL (NEG-TRACE)
[2021-11-30 06:35] LABS: BARBITURATES NEG (NEG); BENZODIAZEPINES NEG (NEG); CANNABINOIDS POS (NEG); COCAINE NEG (NEG); METHADONE NEG (NEG); OPIATES NEG (NEG); PHENCYCLIDINE NEG (NEG)
[2021-11-30 06:38] LABS: AMPHETAMINE/METHAMPHETAMINE NEG (NEG)
[2021-11-30 06:51] LABS: BACTERIA,URINE 0 /HPF (0-FEW); WBC,URINE OCC /HPF (0-4)
--- NOTE | 2021-11-30 06:56 | EKG ---
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
[2021-11-30] MEDS: IV NORMAL SALINE 1000ML BAG 1,000 ML IV SCH ×2 (07:32→15:13)
[2021-11-30] MEDS ORDERED: MAGNESIUM SULFATE 4GM 100 ML IV ONE (08:45)
[2021-11-30] MEDS ORDERED: POTASSIUM CHLORIDE 20 MEQ TABLET.ER. PO ONE (08:45)
--- NOTE | 2021-11-30 09:15 | PDOC1 ---
History and Physical Date of Admission Date of Admission DATE: 11/30/21 TIME: 09:10 Source Source: Chart review, Patient History of Present Illness History of Present Illness Mr. Graham, is a 41 year old male with marked EtOH use and withdrawl. He has prior hx of HTN, has not seen Dr. Marquis or taken BP meds, he had been sober, but has been drinking again heavy, he reported to the ER 10 days, but I suspect much longer, he reports drinking 750mls vodka daily or more, and some beer.s He has abd pain, but has eaten, HR is 120 at rest, sinus has not vomited in some time since presenting to the ER this AM Past Medical History Cardiovascular: HTN CENTRAL NERVOUS SYSTEM: Seizure Heme/Onc: No pertinent hx Psych: Anxiety, Addictions, Depression Rheumatologic: No pertinent hx Infectious disease: No pertinent hx, Other Renal/: No pertinent hx Endocrine: Diabetes Past Surgical History Past Surgical History: Hernia Repair Family History Family History: Alcohol Abuse, Heart Disease Family History: Parent Social History Smoke: No ALCOHOL: heavy Drugs: Marijuana Current Problem List Problem List Problems Medical Problems: (1) Alcohol withdrawal Status: Acute (2) Hypokalemia Status: Acute Current Medications Current Medications Current Medications Ondansetron HCl (Zofran) 4 mg 1X ONCE IVP Last administered on 11/30/21at 01:45; Start 11/30/21 at 01:45; Stop 11/30/21 at 01:46; Status DC Sodium Chloride 1,000 ml @ 1,000 mls/hr 1X ONCE IV Last administered on 11/30/21at 01:45; Start 11/30/21 at 01:45; Stop 11/30/21 at 02:44; Status DC Potassium Chloride/Water 100 ml @ 50 mls/hr Q2H IV ; Start 11/30/21 at 02:30; Stop 11/30/21 at 06:29; Status UNV Potassium Bicarbonate (Potassium Effervescent Tablet) 40 meq 1X ONCE PO Last administered on 11/30/21at 02:52; Start 11/30/21 at 02:30; Stop 11/30/21 at 02:32; Status DC Potassium Chloride/Water 100 ml @ 100 mls/hr Q1H IV Last administered on 11/30/21at 07:33; Start 11/30/21 at 02:45; Stop 11/30/21 at 06:44; Status DC Multivitamins 10 ml/Thiamine HCl 100 mg/Folic Acid 1 mg/Sodium Chloride 1,011.2 ml @ 1,000.088 mls/hr 1X ONCE IV Last administered on 11/30/21at 04:35; Start 11/30/21 at 03:45; Stop 11/30/21 at 04:45; Status DC Ondansetron HCl (Zofran) 4 mg PRN Q8HRS PRN IVP NAUSEA/VOMITING Last administered on 11/30/21at 04:31; Start 11/30/21 at 03:15; Stop 12/01/21 at 03:14 Fentanyl Citrate (Fentanyl 2ml Vial) 50 mcg PRN Q1HR PRN IVP PAIN; Start 11/30/21 at 03:15; Stop 12/01/21 at 03:14 Sodium Chloride 1,000 ml @ 100 mls/hr Q10H IV Last administered on 11/30/21at 07:32; Start 11/30/21 at 03:00; Stop 12/01/21 at 02:59 Acetaminophen (Tylenol) 650 mg PRN Q4HRS PRN PO FEVER > 100.3'F; Start 11/30/21 at 03:15; Stop 12/01/21 at 03:14 Multivitamins (Thera M Plus) 1 tab DAILY PO ; Start 12/01/21 at 09:00 Folic Acid (Folic Acid) 1 mg DAILY PO ; Start 12/01/21 at 09:00 Thiamine Mononitrate (Vitamin B-1) 100 mg DAILY PO ; Start 12/01/21 at 09:00 Lorazepam (Ativan) 4 mg PRN Q1HR PRN PO For CIWA 8-14; Start 11/30/21 at 03:15 Lorazepam (Ativan) 8 mg PRN Q1HR PRN PO For CIWA 15 or greater; Start 11/30/21 at 03:15 Lorazepam (Ativan Inj) 2 mg PRN Q1HR PRN IV For CIWA 8-14; Start 11/30/21 at 03:15 Lorazepam (Ativan Inj) 4 mg PRN Q1HR PRN IV For CIWA 15 or greater Last administered on 11/30/21at 04:46; Start 11/30/21 at 03:15 Haloperidol Lactate (Haldol Inj) 5 mg PRN Q4HRS PRN IVP Hallucinatns,Confusn,Delirium; Start 11/30/21 at 03:15 Magnesium Sulfate 100 ml @ 25 mls/hr 1X ONCE IV ; Start 11/30/21 at 08:45; Stop 11/30/21 at 12:44; Status UNV Potassium Chloride (Klor-Con) 40 meq 1X ONCE PO ; Start 11/30/21 at 08:45; Stop 11/30/21 at 08:46; Status UNV Lisinopril (Prinivil) 10 mg DAILY PO ; Start 11/30/21 at 09:00; Status UNV Pantoprazole Sodium (Protonix) 40 mg DAILYAC PO ; Start 12/01/21 at 07:30; St atus UNV Active Scripts Active Vitamin B-1 (Thiamine Mononitrate) 100 Mg Tablet 100 Mg PO DAILY 30 Days Admelog (Insulin Lispro) 100 Unit/1 Ml Vial 0 Units SQ TIDWMEALS 30 Days [Folic Acid] 1 MG Tablet 1 Mg PO DAILY 30 Days Pantoprazole Sodium (Pantoprazole Sodium) 40 Mg Tablet.dr 40 Mg PO DAILYAC 30 Days Mag-Al Plus Xs Suspension (Mag Hydrox/Al Hydrox/Simeth) 30 Ml Oral.susp 30 Ml PO PRN DAILY PRN 14 Days Tylenol (Acetaminophen) 325 Mg Tablet 650 Mg PO PRN Q4HRS PRN 30 Days Reported Lisinopril 10 Mg Tablet 10 Mg PO DAILY Allergies Allergies: Coded Allergies: No Known Drug Allergies (Unverified , 11/30/21) ROS General: YES: Chills, Fatigue, Malaise; No: Night Sweats, Appetite, Other PSYCHOLOGICAL ROS: YES: Anxiety, Irritablity, Sleep disturbances; No: Behavioral Disorder, Concentration difficultie, Decreased libido, Depression, Disorientation, Hallucinations, Hostility, Memory difficulties, Mood Swings, Obsessive thoughts, Suicidal ideation, Other Eyes: No Blurry vision, No Decreased vision, No Double vision, No Dry eyes, No Excessive tearing, No Eye Pain, No Itchy Eyes, No Loss of vision, No Photophobia, No Scotomata, No Uses contacts, No Uses glasses, No Other HEENT: No: Heacaches, Visual Changes, Hearing change, Nasal congestion, Nasal discharge, Oral lesions, Sinus pain, Sore Throat, Epistaxis, Sneezing, Snoring, Tinnitus, Vertigo, Vocal changes, Other Respiratory: No: Cough, Hemoptysis, Orthopnea, Pleuritic Pain, Shortness of breath, SOB with excertion, Sputum Changes, Stridor, Tachypnea, Wheezing, Other Cardiovascular: yes Chest Pain; No Palpitations, No Orthopnea, No Paroxysmal Noc. Dyspnea, No Edema, No Lt Headedness, No Other Gastrointestinal: Yes Nausea, Yes Vomiting, Yes Abdominal Pain; No Diarrhea, No Constipation, No Melena, No Hematochezia, No Other Genitourinary: No Dysuria, No Frequency, No Incontinence, No Hematuria, No Retention, No Discharge, No Urgency, No Pain, No Flank Pain, No Other, No , No , No , No , No , No , No Musculoskeletal: No Gait Disturbance, No Joint Pain, No Joint Stiffness, No Joint Swelling, No Muscle Pain, No Muscular Weakness, No Pain In:, No Swelling In:, No Other Neurological: No Behavorial Changes, No Bowel/Bladder ControlChng, No Confusion, No Dizziness, No Gait Disturbance, No Headaches, No Impaired Coord/balance, No Memory Loss, No Numbness/Tingling, No Seizures, No Speech Problems, No Tremors, No Visual Changes, No Weakness, No Other Skin: Yes Dry Skin; No Eczema, No Hair Changes, No Lumps, No Mole Changes, No Mottling, No Nail Changes, No Pruritus, No Rash, No Skin Lesion Changes, No Other, No Acne Physical Exam General: Alert, Cooperative, No acute distress HEENT: Atraumatic Lungs: Clear to auscultation Extremities: No clubbing, Normal pulses Skin: No significant lesion Neuro: Normal speech, Strength at 5/5 X4 ext, Normal tone, Cranial nerves 3-12 NL Psych/Mental Status: Mental status NL, Mood NL Vitals Vitals Vital Signs Date Time Temp Pulse Resp B/P (MAP) Pulse Ox O2 Delivery O2 Flow Rate FiO2 11/30/21 05:24 107 16 174/92 (119) 97 Room Air 11/30/21 01:06 98.5 98.5 Labs Labs Laboratory Tests Test 11/30/21 01:48 11/30/21 01:51 11/30/21 06:07 White Blood Count 5.6 x10^3/uL (4.0-11.0) Red Blood Count 5.13 x10^6/uL (4.30-5.70) Hemoglobin 15.4 g/dL (13.0-17.5) Hematocrit 44.3 % (39.0-53.0) Mean Corpuscular Volume 87 fL (79-100) Mean Corpuscular Hemoglobin 30 pg (25-35) Mean Corpuscular Hemoglobin Concent 35 g/dL (31-37) Red Cell Distribution Width 14.2 % (11.5-14.5) Platelet Count 84 x10^3/uL (140-400) Neutrophils (%) (Auto) 64 % (31-73) Lymphocytes (%) (Auto) 24 % (24-48) Monocytes (%) (Auto) 11 % (0-9) Eosinophils (%) (Auto) 0 % (0-3) Basophils (%) (Auto) 1 % (0-3) Neutrophils # (Auto) 3.6 x10^3/uL (1.8-7.7) Lymphocytes # (Auto) 1.3 x10^3/uL (1.0-4.8) Monocytes # (Auto) 0.6 x10^3/uL (0.0-1.1) Eosinophils # (Auto) 0.0 x10^3/uL (0.0-0.7) Basophils # (Auto) 0.0 x10^3/uL (0.0-0.2) Sodium Level 129 mmol/L (136-145) Potassium Level 2.4 mmol/L (3.5-5.1) Chloride Level 89 mmol/L (98-107) Carbon Dioxide Level 30 mmol/L (21-32) Anion Gap 10 (6-14) Blood Urea Nitrogen 7 mg/dL (8-26) Creatinine 0.8 mg/dL (0.7-1.3) Estimated GFR (Cockcroft-Gault) 107.1 BUN/Creatinine Ratio 9 (6-20) Glucose Level 212 mg/dL (70-99) Calcium Level 7.9 mg/dL (8.5-10.1) Phosphorus Level 2.6 mg/dL (2.6-4.7) Magnesium Level 1.4 mg/dL (1.8-2.4) Total Bilirubin 0.6 mg/dL (0.2-1.0) Aspartate Amino Transf (AST/SGOT) 80 U/L (15-37) Alanine Aminotransferase (ALT/SGPT) 133 U/L (16-63) Alkaline Phosphatase 77 U/L (46-116) Troponin I High Sensitivity 15 ng/L (4-75) ZP-Ass-D-Type Natriuretic Peptide 11 pg/mL (0-124) Total Protein 7.6 g/dL (6.4-8.2) Albumin 3.4 g/dL (3.4-5.0) Albumin/Globulin Ratio 0.8 (1.0-1.7) Lipase 588 U/L (73-393) Ethyl Alcohol Level 103 mg/dL (0-10) SARS-CoV-2 Antigen (Rapid) Negative (NEGATIVE) Urine Collection Type Unknown Urine Color Yellow Urine Clarity Clear Urine pH 7.0 (<5.0-8.0) Urine Specific [place] 1.015 (1.000-1.030) Urine Protein 100 mg/dL (NEG-TRACE) Urine Glucose (UA) 100 mg/dL (NEG) Urine Ketones (Stick) 15 mg/dL (NEG) Urine Blood Trace (NEG) Urine Nitrite Negative (NEG) Urine Bilirubin Negative (NEG) Urine Urobilinogen Dipstick 1.0 mg/dL (0.2 mg/dL) Urine Leukocyte Esterase Negative (NEG) Urine RBC 3-5 /HPF (0-2) Urine WBC Occ /HPF (0-4) Urine Squamous Epithelial Cells Occ /LPF Urine Bacteria 0 /HPF (0-FEW) Urine Mucus Mod /LPF Urine Opiates Screen Neg (NEG) Urine Methadone Screen Neg (NEG) Urine Barbiturates Neg (NEG) Urine Phencyclidine Screen Neg (NEG) Urine Amphetamine/Methamphetamine Neg (NEG) Urine Benzodiazepines Screen Neg (NEG) Urine Cocaine Screen Neg (NEG) Urine Cannabinoids Screen Pos (NEG) Urine Ethyl Alcohol Pos (NEG) Laboratory Tests Test 11/30/21 01:48 11/30/21 01:51 11/30/21 06:07 White Blood Count 5.6 x10^3/uL (4.0-11.0) Red Blood Count 5.13 x10^6/uL (4.30-5.70) Hemoglobin 15.4 g/dL (13.0-17.5) Hematocrit 44.3 % (39.0-53.0) Mean Corpuscular Volume 87 fL (79-100) Mean Corpuscular Hemoglobin 30 pg (25-35) Mean Corpuscular Hemoglobin Concent 35 g/dL (31-37) Red Cell Distribution Width 14.2 % (11.5-14.5) Platelet Count 84 x10^3/uL (140-400) Neutrophils (%) (Auto) 64 % (31-73) Lymphocytes (%) (Auto) 24 % (24-48) Monocytes (%) (Auto) 11 % (0-9) Eosinophils (%) (Auto) 0 % (0-3) Basophils (%) (Auto) 1 % (0-3) Neutrophils # (Auto) 3.6 x10^3/uL (1.8-7.7) Lymphocytes # (Auto) 1.3 x10^3/uL (1.0-4.8) Monocytes # (Auto) 0.6 x10^3/uL (0.0-1.1) Eosinophils # (Auto) 0.0 x10^3/uL (0.0-0.7) Basophils # (Auto) 0.0 x10^3/uL (0.0-0.2) Sodium Level 129 mmol/L (136-145) Potassium Level 2.4 mmol/L (3.5-5.1) Chloride Level 89 mmol/L (98-107) Carbon Dioxide Level 30 mmol/L (21-32) Anion Gap 10 (6-14) Blood Urea Nitrogen 7 mg/dL (8-26) Creatinine 0.8 mg/dL (0.7-1.3) Estimated GFR (Cockcroft-Gault) 107.1 BUN/Creatinine Ratio 9 (6-20) Glucose Level 212 mg/dL (70-99) Calcium Level 7.9 mg/dL (8.5-10.1) Phosphorus Level 2.6 mg/dL (2.6-4.7) Magnesium Level 1.4 mg/dL (1.8-2.4) Total Bilirubin 0.6 mg/dL (0.2-1.0) Aspartate Amino Transf (AST/SGOT) 80 U/L (15-37) Alanine Aminotransferase (ALT/SGPT) 133 U/L (16-63) Alkaline Phosphatase 77 U/L (46-116) Troponin I High Sensitivity 15 ng/L (4-75) AZ-Oaf-O-Type Natriuretic Peptide 11 pg/mL (0-124) Total Protein 7.6 g/dL (6.4-8.2) Albumin 3.4 g/dL (3.4-5.0) Albumin/Globulin Ratio 0.8 (1.0-1.7) Lipase 588 U/L (73-393) Ethyl Alcohol Level 103 mg/dL (0-10) SARS-CoV-2 Antigen (Rapid) Negative (NEGATIVE) Urine Collection Type Unknown Urine Color Yellow Urine Clarity Clear Urine pH 7.0 (<5.0-8.0) Urine Specific [place] 1.015 (1.000-1.030) Urine Protein 100 mg/dL (NEG-TRACE) Urine Glucose (UA) 100 mg/dL (NEG) Urine Ketones (Stick) 15 mg/dL (NEG) Urine Blood Trace (NEG) Urine Nitrite Negative (NEG) Urine Bilirubin Negative (NEG) Urine Urobilinogen Dipstick 1.0 mg/dL (0.2 mg/dL) Urine Leukocyte Esterase Negative (NEG) Urine RBC 3-5 /HPF (0-2) Urine WBC Occ /HPF (0-4) Urine Squamous Epithelial Cells Occ /LPF Urine Bacteria 0 /HPF (0-FEW) Urine Mucus Mod /LPF Urine Opiates Screen Neg (NEG) Urine Methadone Screen Neg (NEG) Urine Barbiturates Neg (NEG) Urine Phencyclidine Screen Neg (NEG) Urine Amphetamine/Methamphetamine Neg (NEG) Urine Benzodiazepines Screen Neg (NEG) Urine Cocaine Screen Neg (NEG) Urine Cannabinoids Screen Pos (NEG) Urine Ethyl Alcohol Pos (NEG) VTE Prophylaxis Ordered VTE Prophylaxis Devices: Yes VTE Pharmacological Prophylaxi: Yes Assessment/Plan Assessment/Plan Acute alcohol withdrawl delirium, banana bag, CIWA, fluids, hyponatremia, dry hypokalemia hypomag acute alcoholic pancreatitis transaminitis from EtOH obese, htn Justifications for Admission Other Justification severe alcohol abuse LIZY MULLIGAN MD Nov 30, 2021 09:15
[2021-11-30] MEDS: LISINOPRIL 10 MG TABLET PO SCH (09:19)
[2021-11-30] MEDS: PANTOPRAZOLE 40 MG TABLET.DR. PO SCH (12:11)
[2021-11-30 15:00] VITALS: BP 148/102
[2021-11-30] MEDS ORDERED: FLU VACC QUAD 21-22 (6MOS+) PF 0.5 ML SYRINGE. VAX IM ONE (15:00)
[2021-11-30 19:00] VITALS: BP 147/91
[2021-11-30 23:00] VITALS: BP 151/118
--- NOTE | 2021-11-30 23:42 | NUR ---
IV accidentally removed. ANGELA Shen replaced IV w/ 20g in left wrist.
[2021-12-01 03:00] VITALS: BP 144/113
[2021-12-01] MEDS ORDERED: ONDANSETRON PF 4 MG/2 ML VIAL. IVP PRN (05:30)
--- NOTE | 2021-12-01 05:34 | NUR ---
Awakened out of deep sleep to have dry heaves. C/o getting a headache and "needing something for nerves". Ativan given IVP. Mouth care done.
[2021-12-01] MEDS: IV NORMAL SALINE 1000ML BAG 1,000 ML IV SCH (05:39)
[2021-12-01 07:00] VITALS: BP 154/108
[2021-12-01] MEDS ORDERED: MULTIVITAMIN with MINERAL TABLET. PO SCH (09:00)
[2021-12-01] MEDS ORDERED: THIAMINE 100 MG TABLET. PO SCH (09:00)
[2021-12-01] MEDS ORDERED: FOLIC ACID 1 MG TABLET. PO SCH (09:00)
[2021-12-01] MEDS: LISINOPRIL 10 MG TABLET PO SCH (09:11)
[2021-12-01] MEDS: PANTOPRAZOLE 40 MG TABLET.DR. PO SCH (09:11)
--- NOTE | 2021-12-01 10:40 | NUR ---
SW following. Discussed with RN, pt from home, room air, regular diet. PAT consulted. Discharge order for home with self care after seen by PAT. Med Assist following for self pay status. SW will continue to follow.
[2021-12-01 11:00] VITALS: BP 166/108
--- NOTE | 2021-12-01 11:45 | PDOC3 ---
Discharge Summary Visit Information Date of Admission: Nov 30, 2021 Date of Discharge: Dec 01, 2021 Final Diagnosis Acute alcohol withdrawl delirium, banana bag, CIWA, fluids, hyponatremia, dry hypokalemia hypomag acute alcoholic pancreatitis transaminitis from EtOH obese, htn Problems Medical Problems: (1) Alcohol withdrawal Status: Acute (2) Hypokalemia Status: Acute Brief Hospital Course Allergies Allergies Coded Allergies Type Severity Reaction Last Updated Verified No Known Drug Allergies 11/30/21 No Vital Signs Vital Signs Date Time Temp Pulse Resp B/P (MAP) Pulse Ox O2 Delivery O2 Flow Rate FiO2 12/01/21 11:00 98.3 111 18 166/108 (127) 94 Room Air 98.3 Lab Results Laboratory Tests Test 11/30/21 01:48 11/30/21 01:51 11/30/21 06:07 11/30/21 17:12 White Blood Count 5.6 x10^3/uL (4.0-11.0) Red Blood Count 5.13 x10^6/uL (4.30-5.70) Hemoglobin 15.4 g/dL (13.0-17.5) Hematocrit 44.3 % (39.0-53.0) Mean Corpuscular Volume 87 fL (79-100) Mean Corpuscular Hemoglobin 30 pg (25-35) Mean Corpuscular Hemoglobin Concent 35 g/dL (31-37) Red Cell Distribution Width 14.2 % (11.5-14.5) Platelet Count 84 x10^3/uL (140-400) Neutrophils (%) (Auto) 64 % (31-73) Lymphocytes (%) (Auto) 24 % (24-48) Monocytes (%) (Auto) 11 % (0-9) Eosinophils (%) (Auto) 0 % (0-3) Basophils (%) (Auto) 1 % (0-3) Neutrophils # (Auto) 3.6 x10^3/uL (1.8-7.7) Lymphocytes # (Auto) 1.3 x10^3/uL (1.0-4.8) Monocytes # (Auto) 0.6 x10^3/uL (0.0-1.1) Eosinophils # (Auto) 0.0 x10^3/uL (0.0-0.7) Basophils # (Auto) 0.0 x10^3/uL (0.0-0.2) Sodium Level 129 mmol/L (136-145) Potassium Level 2.4 mmol/L (3.5-5.1) Chloride Level 89 mmol/L (98-107) Carbon Dioxide Level 30 mmol/L (21-32) Anion Gap 10 (6-14) Blood Urea Nitrogen 7 mg/dL (8-26) Creatinine 0.8 mg/dL (0.7-1.3) Estimated GFR (Cockcroft-Gault) 107.1 BUN/Creatinine Ratio 9 (6-20) Glucose Level 212 mg/dL (70-99) Calcium Level 7.9 mg/dL (8.5-10.1) Phosphorus Level 2.6 mg/dL (2.6-4.7) Magnesium Level 1.4 mg/dL (1.8-2.4) Total Bilirubin 0.6 mg/dL (0.2-1.0) Aspartate Amino Transf (AST/SGOT) 80 U/L (15-37) Alanine Aminotransferase (ALT/SGPT) 133 U/L (16-63) Alkaline Phosphatase 77 U/L (46-116) Troponin I High Sensitivity 15 ng/L (4-75) LT-Hxh-E-Type Natriuretic Peptide 11 pg/mL (0-124) Total Protein 7.6 g/dL (6.4-8.2) Albumin 3.4 g/dL (3.4-5.0) Albumin/Globulin Ratio 0.8 (1.0-1.7) Lipase 588 U/L (73-393) Ethyl Alcohol Level 103 mg/dL (0-10) SARS-CoV-2 RNA (MANSI) Negative (Negative) SARS-CoV-2 Antigen (Rapid) Negative (NEGATIVE) Urine Collection Type Unknown Urine Color Yellow Urine Clarity Clear Urine pH 7.0 (<5.0-8.0) Urine Specific [place] 1.015 (1.000-1.030) Urine Protein 100 mg/dL (NEG-TRACE) Urine Glucose (UA) 100 mg/dL (NEG) Urine Ketones (Stick) 15 mg/dL (NEG) Urine Blood Trace (NEG) Urine Nitrite Negative (NEG) Urine Bilirubin Negative (NEG) Urine Urobilinogen Dipstick 1.0 mg/dL (0.2 mg/dL) Urine Leukocyte Esterase Negative (NEG) Urine RBC 3-5 /HPF (0-2) Urine WBC Occ /HPF (0-4) Urine Squamous Epithelial Cells Occ /LPF Urine Bacteria 0 /HPF (0-FEW) Urine Mucus Mod /LPF Urine Opiates Screen Neg (NEG) Urine Methadone Screen Neg (NEG) Urine Barbiturates Neg (NEG) Urine Phencyclidine Screen Neg (NEG) Urine Amphetamine/Methamphetamine Neg (NEG) Urine Benzodiazepines Screen Neg (NEG) Urine Cocaine Screen Neg (NEG) Urine Cannabinoids Screen Pos (NEG) Urine Ethyl Alcohol Pos (NEG) Glucose (Fingerstick) 129 mg/dL (70-99) Laboratory Tests Test 11/30/21 17:12 Glucose (Fingerstick) 129 mg/dL (70-99) Brief Hospital Course Mr. Graham is a 41 old male, admit with EtOH abuse and acute withdrawl symptoms, IV ativan, fluid, thiamine, banana bag given felt much better DC to PAT team, outpatient f/u Discharge Information Condition at Discharge: Improved Follow Up: Weeks Disposition/Orders: D/C to Home Scheduled Insulin Lispro (Admelog) 100 Unit/1 Ml Vial, 0 UNITS SQ TIDWMEALS for PER WRITTEN SLIDING SCALE for 30 Days, #1 Prescribed by: GREYSON RIVERA MD on 04/06/21 1056 Lisinopril (Lisinopril) 10 Mg Tablet, 10 MG PO DAILY for FOR HYPERTENSION, #30 Ref 0 (Reported) Entered as Reported by: BRAXTON LANDRY on 04/02/21 0804 Last Action: Continued on 11/30/21 0834 by LIZY MULLIGAN Pantoprazole Sodium (Pantoprazole Sodium ) 40 Mg Tablet.dr, 40 MG PO DAILYAC for GERD for 30 Days, #30 Prescribed by: GREYSON RIVERA MD on 04/06/21 1056 Last Action: Continued on 11/30/21 0834 by LIZY MULLIGAN Thiamine Mononitrate (Vitamin B-1) 100 Mg Tablet, 100 MG PO DAILY for SUPPLEMENT for 30 Days, #30 Prescribed by: GREYSON RIVERA MD on 04/06/21 1056 [Folic Acid] 1 MG TABLET, 1 MG PO DAILY for SUPPLEMENT for 30 Days, #30 Prescribed by: GREYSON RIVERA MD on 04/06/21 1056 Scheduled PRN Acetaminophen (Tylenol) 325 Mg Tablet, 650 MG PO PRN Q4HRS PRN for TEMP OVER 100.4F OR MILD PAIN for 30 Days, #60 Prescribed by: GREYSON RIVERA MD on 10/15/19 1343 Mag Hydrox/Al Hydrox/Simeth (Mag-Al Plus Xs Suspension) 30 Ml Oral.susp, 30 ML PO PRN DAILY PRN for HEARTBURN / GAS for 14 Days, #240 Prescribed by: GREYSON RIVERA MD on 04/06/21 1056 Patient Instructions Patient Instructions pt seen face to face Justicifation of Admission Dx: Justifications for Admission: Justification of Admission Dx: Yes LIZY MULLIGAN MD Dec 01, 2021 11:45
--- NOTE | 2021-12-01 13:10 | NUR ---
PAT team came and saw patient. Gave info. Discharge papers given. Pt verbalized understanding. Dc'd home. Picked up by mother. Escorted out by w/c.
== END 2021-12-01 13:10 | disposition home or self-care (01) | DRG 640 ==
LOC: ER 01:02 → ED HOLD 04:30 → 5 SOUTH 06:55
PROVIDERS: ADMIT Internal Medicine; ATTEND Internal Medicine
DX: E87.6 Hypokalemia (principal); K85.20 Alcohol induced acute pancreatitis without necrosis or infection; F10.231 Alcohol dependence with withdrawal delirium; F10.221 Alcohol dependence with intoxication delirium; E87.1 Hypo-osmolality and hyponatremia; E11.9 Type 2 diabetes mellitus without complications; E66.9 Obesity, unspecified; E83.42 Hypomagnesemia; I10 Essential (primary) hypertension; F32.A Depression, unspecified; F41.9 Anxiety disorder, unspecified; Z68.33 Body mass index [BMI] 33.0-33.9, adult; Z20.822 Contact with and (suspected) exposure to COVID-19; R74.01 Elevation of levels of liver transaminase levels; Y90.0 Blood alcohol level of less than 20 mg/100 ml
CPT/HCPCS: 36415; 71045; 80053; 80307; 81001; 82962; 83690; 83735; 83880; 84100; 84484; 85025; 87426; 90471; 90686; 93005; G0480; J2060; J2405; J3411; J3475; J3480; J3490; J7030; U0003; U0005; 99285-25; G0378

== ENCOUNTER 2022-04-02 20:26 | Inpatient (IN) | payer SELFPAY ==
[~2022-04-02] VITALS: Ht 177.8 cm; Wt 123.1 kg
[2022-04-02] MEDS ORDERED: MULTIVIT INFUSN,ADULT 4,VIT K 10 ML, THIAMINE INJ 100 MG, FOLIC ACID INJ 1 MG in IV NOR... IV ONE (20:45)
[2022-04-02 21:06] LABS: BASO # 0.1 x10^3/uL (0.0-0.2); BASO % 1 % (0-3); EOS # 0.1 x10^3/uL (0.0-0.7); EOS % 1 % (0-3); HEMOGLOBIN 17.3 g/dL (13.0-17.5); LYMPH # 6.4 x10^3/uL (1.0-4.8); LYMPH % 50 % (24-48); MEAN CORPUSCULAR HEMOGLOBIN 31 pg (25-35); MEAN CORPUSCULAR HGB CONC 35 g/dL (31-37); MEAN CORPUSCULAR VOLUME 89 fL (79-100); MONO # 0.6 x10^3/uL (0.0-1.1); MONO % 5 % (0-9); NEUT # 5.6 x10^3/uL (1.8-7.7); NEUT % 44 % (31-73); PLATELET COUNT 280 x10^3/uL (140-400); RED BLOOD COUNT 5.64 x10^6/uL (4.30-5.70); RED CELL DISTRIBUTION WIDTH 14.2 % (11.5-14.5); WHITE BLOOD COUNT 12.8 x10^3/uL (4.0-11.0)
[2022-04-02 21:14] LABS: CALCIUM 8.3 mg/dL (8.5-10.1); CREATININE 0.9 mg/dL (0.7-1.3); GFR 93.5; POTASSIUM 3.4 mmol/L (3.5-5.1)
[2022-04-02 21:26] LABS: ALBUMIN 3.7 g/dL (3.4-5.0); ALBUMIN/GLOBULIN RATIO 0.8 (1.0-1.7); MAGNESIUM 1.9 mg/dL (1.8-2.4); PHOSPHORUS 3.9 mg/dL (2.6-4.7); TOTAL BILIRUBIN 0.3 mg/dL (0.2-1.0); TOTAL PROTEIN 8.5 g/dL (6.4-8.2)
[2022-04-02 21:28] LABS: ACETAMIN < 2 mcg/ml (10-30)
[2022-04-02 21:29] LABS: ETHANOL 443 mg/dL (0-10)
--- NOTE | 2022-04-02 22:08 | ED.ADGEN ---
Past Medical History Past Medical History: Hypertension, Other Additional Past Medical Histor: etoh Past Surgical History: Other Additional Past Surgical Histo: STATES YES BUT UNABLE TO OBTAIN Smoking Status: Current Every Day Smoker Alcohol Use: Rarely Drug Use: Marijuana General Adult EDM: Chief Complaint: ALCOHOL INTOXICATION HPI: HPI: Patient is a 41 year old male brought in by EMS from home. Patient is intoxicated and possibly had a seizure. Patient states that he has a history of seizures but tends to have seizures when he was drinking alcohol. Patient states he drinks 2 pints of vodka today, denies any other drug use. Patient has been admitted several times for alcohol withdrawal in the past. Patient states that his last admission was in November has not drank since then. Review of Systems: Review of Systems: All other systems within normal limits except for as noted in the HPI Current Medications: Current Medications Medications (Trade) Dose Ordered Sig/[place] Start Time Stop Time Status Last Admin Dose Admin Acetaminophen (Tylenol) 650 mg PRN Q4HRS PRN 04/02/22 22:15 04/03/22 22:14 Clonidine HCl (Catapres) 0.1 mg PRN Q1HR PRN 04/02/22 22:15 Diphenhydramine HCl (Benadryl) 25 mg PRN Q15MIN PRN 04/02/22 22:15 04/03/22 01:09 25 MG Haloperidol Lactate (Haldol Inj) 5 mg PRN Q4HRS PRN 04/02/22 22:15 Lorazepam (Ativan Inj) 4 mg PRN Q1HR PRN 04/02/22 22:15 Lorazepam (Ativan) 2 mg Q6H 04/02/22 22:15 04/04/22 04:16 04/02/22 23:06 2 MG Multivitamins 10 ml/Thiamine HCl 100 mg/Folic Acid 1 mg/Sodium Chloride 1,011.2 ml @ 1,000.088 mls/hr 1X ONCE 04/02/22 20:45 04/02/22 21:45 DC 04/02/22 21:49 1,000.088 MLS/HR Ondansetron HCl (Zofran) 4 mg PRN Q8HRS PRN 04/02/22 22:15 04/03/22 22:14 Sodium Chloride 1,000 ml @ 125 mls/hr Q8H 04/02/22 22:15 04/03/22 22:14 04/03/22 01:10 125 MLS/HR Allergies: Allergies: Allergies Coded Allergies Type Severity Reaction Last Updated Verified No Known Drug Allergies 11/30/21 No Physical Exam: PE: Constitutional: Well developed, well nourished, no acute distress, non-toxic appearance. [] HENT: Normocephalic, atraumatic, bilateral external ears normal, nose normal. [] Eyes: PERRLA, conjunctiva normal, no discharge. [] Neck: No rigidity, supple, no stridor. [] Cardiovascular: Regular rate and rhythm, brisk cap refill [] Lungs & Thorax: Non labored symmetric respirations, no tachypnea or respiratory distress [] Abdomen: Soft, nondistended. Skin: Warm, dry, no erythema, no rash. [] Back: Unremarkable Extremities: No deformities, range of motion grossly intact, no lower extremity edema [] Neurologic: Alert and oriented X 3, no focal deficits noted. [] Psychologic: Affect normal, judgement normal, mood normal. [] Current Patient Data: Labs: Laboratory Tests Test 04/02/22 20:50 White Blood Count 12.8 x10^3/uL (4.0-11.0) H Red Blood Count 5.64 x10^6/uL (4.30-5.70) Hemoglobin 17.3 g/dL (13.0-17.5) Hematocrit 50.0 % (39.0-53.0) Mean Corpuscular Volume 89 fL (79-100) Mean Corpuscular Hemoglobin 31 pg (25-35) Mean Corpuscular Hemoglobin Concent 35 g/dL (31-37) Red Cell Distribution Width 14.2 % (11.5-14.5) Platelet Count 280 x10^3/uL (140-400) Neutrophils (%) (Auto) 44 % (31-73) Lymphocytes (%) (Auto) 50 % (24-48) H Monocytes (%) (Auto) 5 % (0-9) Eosinophils (%) (Auto) 1 % (0-3) Basophils (%) (Auto) 1 % (0-3) Neutrophils # (Auto) 5.6 x10^3/uL (1.8-7.7) Lymphocytes # (Auto) 6.4 x10^3/uL (1.0-4.8) H Monocytes # (Auto) 0.6 x10^3/uL (0.0-1.1) Eosinophils # (Auto) 0.1 x10^3/uL (0.0-0.7) Basophils # (Auto) 0.1 x10^3/uL (0.0-0.2) Sodium Level 146 mmol/L (136-145) H Potassium Level 3.4 mmol/L (3.5-5.1) L Chloride Level 103 mmol/L (98-107) Carbon Dioxide Level 30 mmol/L (21-32) Anion Gap 13 (6-14) Blood Urea Nitrogen 8 mg/dL (8-26) Creatinine 0.9 mg/dL (0.7-1.3) Estimated GFR (Cockcroft-Gault) 93.5 BUN/Creatinine Ratio 9 (6-20) Glucose Level 121 mg/dL (70-99) H Lactic Acid Level 4.0 mmol/L (0.4-2.0) *H Calcium Level 8.3 mg/dL (8.5-10.1) L Phosphorus Level 3.9 mg/dL (2.6-4.7) Magnesium Level 1.9 mg/dL (1.8-2.4) Total Bilirubin 0.3 mg/dL (0.2-1.0) Aspartate Amino Transferase (AST) 27 U/L (15-37) Alanine Aminotransferase (ALT) 49 U/L (16-63) Alkaline Phosphatase 80 U/L (46-116) Creatine Kinase 959 U/L (39-308) H Myoglobin 62 ng/mL (16-96) Total Protein 8.5 g/dL (6.4-8.2) H Albumin 3.7 g/dL (3.4-5.0) Albumin/Globulin Ratio 0.8 (1.0-1.7) L Salicylates Level 2.0 mg/dL (2.8-20.0) L Salicylate Last Dose Date Salicylate Last Dose Time Acetaminophen Level < 2 mcg/ml (10-30) L Acetaminophen Last Dose Date Acetaminophen Last Dose Time Ethyl Alcohol Level 443 mg/dL (0-10) *H Laboratory Tests 04/02/22 20:50 Laboratory Tests 04/02/22 20:50 Vital Signs: Vital Signs Date Time Temp Pulse Resp B/P (MAP) Pulse Ox O2 Delivery O2 Flow Rate FiO2 04/02/22 20:31 97.5 95 12 173/102 (125) 93 Room Air 97.5 EKG: EKG: Sinus rhythm, heart rate 80 bpm, no, normal interval [] Heart Score: C/O Chest Pain: No Risk Factors: Risk Factors: DM, Current or recent (<one month) smoker, HTN, HLP, family history of CAD, obesity. Risk Scores: Score 0 - 3: 2.5% MACE over next 6 weeks - Discharge Home Score 4 - 6: 20.3% MACE over next 6 weeks - Admit for Clinical Observation Score 7 - 10: 72.7% MACE over next 6 weeks - Early Invasive Strategies Radiology/Procedures: Radiology/Procedures: [] Course & Med Decision Making: Course & Med Decision Making Pertinent Labs and Imaging studies reviewed. (See chart for details) [] Dragon Disclaimer: Dragon Disclaimer: This electronic medical record was generated, in whole or in part, using a voice recognition dictation system. Departure Departure Impression: Primary Impression: Alcohol withdrawal Additional Impression: Alcohol abuse Disposition: ADMITTED INPATIENT Admitting Physician: HIMJakub Condition: STABLE Referrals: JUDAH WEST MD (PCP) Problem Qualifiers FERNY MIN MD April 02, 2022 22:08
[2022-04-02] MEDS ORDERED: ONDANSETRON PF 4 MG/2 ML VIAL. IVP PRN (22:15)
[2022-04-02] MEDS ORDERED: HALOPERIDOL LACTATE 5 MG/ML VIAL. IVP PRN (22:15)
[2022-04-02] MEDS: IV NORMAL SALINE 1000ML BAG 1,000 ML IV SCH (22:15)
[2022-04-02] MEDS ORDERED: ACETAMINOPHEN 325 MG TABLET. PO PRN (22:15)
[2022-04-02] MEDS ORDERED: cloNIDine HCL 0.1 MG TABLET PO PRN (22:15)
[2022-04-02] MEDS ORDERED: diphenhydrAMINE 50 MG/ML VIAL IVP PRN (22:15)
[2022-04-03] VITALS (7 sets, daily range): BP systolic 141–162; BP diastolic 70–106
[2022-04-03] MEDS ORDERED: TRAZDONE (00:47)
[2022-04-03] MEDS ORDERED: HYDR25TA PO (00:47)
[2022-04-03] MEDS ORDERED: ESOM20CA PO (00:47)
[2022-04-03] MEDS: IV NORMAL SALINE 1000ML BAG 1,000 ML IV SCH (01:10)
[2022-04-03 02:57] LABS: ALBUMIN 3.3 g/dL (3.4-5.0); ALBUMIN/GLOBULIN RATIO 0.8 (1.0-1.7); BASO # 0.1 x10^3/uL (0.0-0.2); BASO % 1 % (0-3); CALCIUM 7.9 mg/dL (8.5-10.1); CREATININE 0.7 mg/dL (0.7-1.3); EOS # 0.1 x10^3/uL (0.0-0.7); EOS % 1 % (0-3); GFR 124.9; HEMOGLOBIN 15.8 g/dL (13.0-17.5); LYMPH # 5.4 x10^3/uL (1.0-4.8); LYMPH % 46 % (24-48); MEAN CORPUSCULAR HEMOGLOBIN 31 pg (25-35); MEAN CORPUSCULAR HGB CONC 34 g/dL (31-37); MEAN CORPUSCULAR VOLUME 89 fL (79-100); MONO # 0.7 x10^3/uL (0.0-1.1); MONO % 7 % (0-9); NEUT # 5.3 x10^3/uL (1.8-7.7); NEUT % 46 % (31-73); PLATELET COUNT 253 x10^3/uL (140-400); POTASSIUM 3.1 mmol/L (3.5-5.1); RED BLOOD COUNT 5.17 x10^6/uL (4.30-5.70); TOTAL BILIRUBIN 0.2 mg/dL (0.2-1.0); TOTAL PROTEIN 7.7 g/dL (6.4-8.2); WHITE BLOOD COUNT 11.6 x10^3/uL (4.0-11.0)
--- NOTE | 2022-04-03 05:52 | EKG ---
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
--- NOTE | 2022-04-03 07:58 | PDOC1 ---
History and Physical Date of Admission Date of Admission DATE: 04/03/22 TIME: 07:53 Identification/Chief Complaint Chief Complaint Confusion Source Source: Caregiver, Chart review History of Present Illness History of Present Illness Mr Graham is a 41 year old male with PMHx HTN and alcohol use disorder who was brought in by EMS from home due to concern for seizure. Patient is intoxicated and told EMS he drank 2 pints of duarte vodka. Patient states that he has a history of seizures but tends to have seizures when he was drinking alcohol. Patient states he drinks 2 pints of vodka today, denies any other drug use. Patient has been admitted several times for alcohol withdrawal in the past. Patient states that his last admission was in November has not drank since then. Noted by nurses to continue to have apneic episodes placed on oxygen. Not able to stay awake very intoxicated confused disoriented Labs with WBC 12.8, Hb 17.3, platelets 280, NA 146, K3.4, BUN 8, CR 0.9, glucose 121, calcium 8.3, lactic acid 4 phosphorus 3.9 mag 1.9 bilirubin 0.3 AST 27 ALT 49 alk phos 80 CK9 159, albumin 3.7 blood ethanol level 443 mg/dL at 2049 on 04/02/2022 Past Medical History Cardiovascular: HTN CENTRAL NERVOUS SYSTEM: Seizure Heme/Onc: No pertinent hx Psych: Anxiety, Addictions, Depression Rheumatologic: No pertinent hx Infectious disease: No pertinent hx, Other Renal/: No pertinent hx Endocrine: Diabetes Past Surgical History Past Surgical History: Hernia Repair Family History Family History: Alcohol Abuse, Heart Disease Family History: Parent Social History Smoke: 1 pack per day ALCOHOL: heavy Drugs: Marijuana Current Problem List Problem List Problems Medical Problems: (1) Alcohol abuse Status: Acute (2) Alcohol withdrawal Status: Acute Current Medications Current Medications Current Medications Multivitamins 10 ml/Thiamine HCl 100 mg/Folic Acid 1 mg/Sodium Chloride 1,011.2 ml @ 1,000.088 mls/hr 1X ONCE IV Last administered on 04/02/22at 21:49; Start 04/02/22 at 20:45; Stop 04/02/22 at 21:45; Status DC Lorazepam (Ativan) 2 mg Q6H PO Last administered on 04/03/22at 04:31; Start at 22:15; Stop 04/04/22 at 04:16 Lorazepam (Ativan Inj) 2 mg PRN Q1HR PRN IV For CIWA 8-14; Start 04/02/22 at 22:15 Lorazepam (Ativan Inj) 4 mg PRN Q1HR PRN IV For CIWA 15 or greater; Start 04/02/22 at 22:15 Haloperidol Lactate (Haldol Inj) 5 mg PRN Q4HRS PRN IVP Hallucinatns,Confusn,Delirium; Start 04/02/22 at 22:15 Diphenhydramine HCl (Benadryl) 25 mg PRN Q15MIN PRN IVP EPS symptoms 2'Haldol admin Last administered on 04/03/22at 01:09; Start 04/02/22 at 22:15 Clonidine HCl (Catapres) 0.1 mg PRN Q1HR PRN PO SBP > 180 or DBP > 100, MRX3; Start 04/02/22 at 22:15 Ondansetron HCl (Zofran) 4 mg PRN Q8HRS PRN IVP NAUSEA/VOMITING; Start 04/02/22 at 22:15; Stop 04/03/22 at 22:14 Sodium Chloride 1,000 ml @ 125 mls/hr Q8H IV Last administered on 04/03/22at 01:10; Start 04/02/22 at 22:15; Stop 04/03/22 at 22:14 Acetaminophen (Tylenol) 650 mg PRN Q4HRS PRN PO FEVER > 100.3'F; Start 04/02/22 at 22:15; Stop 04/03/22 at 22:14 Active Scripts Active Reported [trazdone] Unknown Dose Nexium Capsule (Esomeprazole Magnesium) 20 Mg Capsule. 1 Cap PO HS Hydroxyzine Hcl 25 Mg Tablet 1 Tab PO HS Lisinopril 10 Mg Tablet 20 Mg PO DAILY Allergies Allergies: Coded Allergies: No Known Drug Allergies (Unverified , 11/30/21) ROS General: YES: Fatigue, Malaise; No: Chills, Night Sweats, Appetite, Other PSYCHOLOGICAL ROS: YES: Anxiety, Disorientation; No: Behavioral Disorder, Concentration difficultie, Decreased libido, Depression, Hallucinations, Hostility, Irritablity, Memory difficulties, Mood Swings, Obsessive thoughts, Physical abuse, Sexual abuse, Sleep disturbances, Suicidal ideation, Other Eyes: No Blurry vision, No Decreased vision, No Double vision, No Dry eyes, No Excessive tearing, No Eye Pain, No Itchy Eyes, No Loss of vision, No Photophobia, No Scotomata, No Uses contacts, No Uses glasses, No Other HEENT: No: Heacaches, Visual Changes, Hearing change, Nasal congestion, Nasal discharge, Oral lesions, Sinus pain, Sore Throat, Epistaxis, Sneezing, Snoring, Tinnitus, Vertigo, Vocal changes, Other ALLERGY AND IMMUNOLOGY: No: Hives, Insect Bite Sensitivity, Itchy/Watery Eyes, Nasal Congestion, Post Nasal Drip, Seasonal Allergies, Other Hematological and Lymphatic: No: Bleeding Problems, Blood Clots, Blood Transfusions, Brusing, Night Sweats, Pallor, Swollen Lymph Nodes, Other ENDOCRINE: No: Breast Changes, Galactorrhea, Hair Pattern Changes, Hot Flashes, Malaise/lethargy, Mood Swings, Palpitations, Polydipsia/polyuria, Skin Changes, Temperature Intolerance, Unexpected Weight Changes, Other Breast: No New/Changing Breast Lumps, No Nipple changes, No Nipple discharge, No Other Respiratory: No: Cough, Hemoptysis, Orthopnea, Pleuritic Pain, Shortness of breath, SOB with excertion, Sputum Changes, Stridor, Tachypnea, Wheezing, Other Cardiovascular: No Chest Pain, No Palpitations, No Orthopnea, No Paroxysmal Noc. Dyspnea, No Edema, No Lt Headedness, No Other Gastrointestinal: No Nausea, No Vomiting, No Abdominal Pain, No Diarrhea, No Constipation, No Melena, No Hematochezia, No Other Genitourinary: No Dysuria, No Frequency, No Incontinence, No Hematuria, No Retention, No Discharge, No Urgency, No Pain, No Flank Pain, No Other, No , No , No , No , No , No , No Musculoskeletal: No Gait Disturbance, No Joint Pain, No Joint Stiffness, No Joint Swelling, No Muscle Pain, No Muscular Weakness, No Pain In:, No Swelling In:, No Other Neurological: Yes Confusion; No Behavorial Changes, No Bowel/Bladder ControlChng, No Dizziness, No Gait Disturbance, No Headaches, No Impaired Coord/balance, No Memory Loss, No Numbness/Tingling, No Seizures, No Speech Problems, No Tremors, No Visual Changes, No Weakness, No Other Skin: No Dry Skin, No Eczema, No Hair Changes, No Lumps, No Mole Changes, No Mottling, No Nail Changes, No Pruritus, No Rash, No Skin Lesion Changes, No Other, No Acne Physical Exam General: Alert, Cooperative, mild distress HEENT: Atraumatic, PERRLA, EOMI, Mucous membr. moist/pink Lungs: Clear to auscultation, Normal air movement Heart: S1S2, RRR, no thrills, no rubs, no gallops, no murmurs Abdomen: Normal bowel sounds, Soft, No tenderness, No hepatosplenomegaly, No masses Rectal Exam: not examined Extremities: No clubbing, No cyanosis, No edema, Normal pulses, No tenderness/swelling Skin: No rashes, No breakdown, No significant lesion Neuro: Strength at 5/5 X4 ext, Normal tone, Sensation intact, Cranial nerves 3- 12 NL, Reflexes 2+ Psych/Mental Status: Other (Encephalopathic) Vitals Vitals Vital Signs Date Time Temp Pulse Resp B/P (MAP) Pulse Ox O2 Delivery O2 Flow Rate FiO2 04/03/22 06:36 97.4 111 16 155/98 (117) 96 Nasal Cannula 4.0 97.4 Labs Labs Laboratory Tests Test 04/02/22 20:50 04/03/22 02:00 White Blood Count 12.8 x10^3/uL (4.0-11.0) 11.6 x10^3/uL (4.0-11.0) Red Blood Count 5.64 x10^6/uL (4.30-5.70) 5.17 x10^6/uL (4.30-5.70) Hemoglobin 17.3 g/dL (13.0-17.5) 15.8 g/dL (13.0-17.5) Hematocrit 50.0 % (39.0-53.0) 46.0 % (39.0-53.0) Mean Corpuscular Volume 89 fL (79-100) 89 fL (79-100) Mean Corpuscular Hemoglobin 31 pg (25-35) 31 pg (25-35) Mean Corpuscular Hemoglobin Concent 35 g/dL (31-37) 34 g/dL (31-37) Red Cell Distribution Width 14.2 % (11.5-14.5) 14.0 % (11.5-14.5) Platelet Count 280 x10^3/uL (140-400) 253 x10^3/uL (140-400) Neutrophils (%) (Auto) 44 % (31-73) 46 % (31-73) Lymphocytes (%) (Auto) 50 % (24-48) 46 % (24-48) Monocytes (%) (Auto) 5 % (0-9) 7 % (0-9) Eosinophils (%) (Auto) 1 % (0-3) 1 % (0-3) Basophils (%) (Auto) 1 % (0-3) 1 % (0-3) Neutrophils # (Auto) 5.6 x10^3/uL (1.8-7.7) 5.3 x10^3/uL (1.8-7.7) Lymphocytes # (Auto) 6.4 x10^3/uL (1.0-4.8) 5.4 x10^3/uL (1.0-4.8) Monocytes # (Auto) 0.6 x10^3/uL (0.0-1.1) 0.7 x10^3/uL (0.0-1.1) Eosinophils # (Auto) 0.1 x10^3/uL (0.0-0.7) 0.1 x10^3/uL (0.0-0.7) Basophils # (Auto) 0.1 x10^3/uL (0.0-0.2) 0.1 x10^3/uL (0.0-0.2) Sodium Level 146 mmol/L (136-145) 145 mmol/L (136-145) Potassium Level 3.4 mmol/L (3.5-5.1) 3.1 mmol/L (3.5-5.1) Chloride Level 103 mmol/L (98-107) 104 mmol/L (98-107) Carbon Dioxide Level 30 mmol/L (21-32) 30 mmol/L (21-32) Anion Gap 13 (6-14) 11 (6-14) Blood Urea Nitrogen 8 mg/dL (8-26) 7 mg/dL (8-26) Creatinine 0.9 mg/dL (0.7-1.3) 0.7 mg/dL (0.7-1.3) Estimated GFR (Cockcroft-Gault) 93.5 124.9 BUN/Creatinine Ratio 9 (6-20) 10 (6-20) Glucose Level 121 mg/dL (70-99) 126 mg/dL (70-99) Lactic Acid Level 4.0 mmol/L (0.4-2.0) 3.0 mmol/L (0.4-2.0) Calcium Level 8.3 mg/dL (8.5-10.1) 7.9 mg/dL (8.5-10.1) Phosphorus Level 3.9 mg/dL (2.6-4.7) Magnesium Level 1.9 mg/dL (1.8-2.4) Total Bilirubin 0.3 mg/dL (0.2-1.0) 0.2 mg/dL (0.2-1.0) Aspartate Amino Transf (AST/SGOT) 27 U/L (15-37) 24 U/L (15-37) Alanine Aminotransferase (ALT/SGPT) 49 U/L (16-63) 43 U/L (16-63) Alkaline Phosphatase 80 U/L (46-116) 76 U/L (46-116) Creatine Kinase 959 U/L (39-308) Myoglobin 62 ng/mL (16-96) Total Protein 8.5 g/dL (6.4-8.2) 7.7 g/dL (6.4-8.2) Albumin 3.7 g/dL (3.4-5.0) 3.3 g/dL (3.4-5.0) Albumin/Globulin Ratio 0.8 (1.0-1.7) 0.8 (1.0-1.7) Salicylates Level 2.0 mg/dL (2.8-20.0) Salicylate Last Dose Date Salicylate Last Dose Time Acetaminophen Level < 2 mcg/ml (10-30) Acetaminophen Last Dose Date Acetaminophen Last Dose Time Ethyl Alcohol Level 443 mg/dL (0-10) Laboratory Tests Test 04/02/22 20:50 04/03/22 02:00 White Blood Count 12.8 x10^3/uL (4.0-11.0) 11.6 x10^3/uL (4.0-11.0) Red Blood Count 5.64 x10^6/uL (4.30-5.70) 5.17 x10^6/uL (4.30-5.70) Hemoglobin 17.3 g/dL (13.0-17.5) 15.8 g/dL (13.0-17.5) Hematocrit 50.0 % (39.0-53.0) 46.0 % (39.0-53.0) Mean Corpuscular Volume 89 fL (79-100) 89 fL (79-100) Mean Corpuscular Hemoglobin 31 pg (25-35) 31 pg (25-35) Mean Corpuscular Hemoglobin Concent 35 g/dL (31-37) 34 g/dL (31-37) Red Cell Distribution Width 14.2 % (11.5-14.5) 14.0 % (11.5-14.5) Platelet Count 280 x10^3/uL (140-400) 253 x10^3/uL (140-400) Neutrophils (%) (Auto) 44 % (31-73) 46 % (31-73) Lymphocytes (%) (Auto) 50 % (24-48) 46 % (24-48) Monocytes (%) (Auto) 5 % (0-9) 7 % (0-9) Eosinophils (%) (Auto) 1 % (0-3) 1 % (0-3) Basophils (%) (Auto) 1 % (0-3) 1 % (0-3) Neutrophils # (Auto) 5.6 x10^3/uL (1.8-7.7) 5.3 x10^3/uL (1.8-7.7) Lymphocytes # (Auto) 6.4 x10^3/uL (1.0-4.8) 5.4 x10^3/uL (1.0-4.8) Monocytes # (Auto) 0.6 x10^3/uL (0.0-1.1) 0.7 x10^3/uL (0.0-1.1) Eosinophils # (Auto) 0.1 x10^3/uL (0.0-0.7) 0.1 x10^3/uL (0.0-0.7) Basophils # (Auto) 0.1 x10^3/uL (0.0-0.2) 0.1 x10^3/uL (0.0-0.2) Sodium Level 146 mmol/L (136-145) 145 mmol/L (136-145) Potassium Level 3.4 mmol/L (3.5-5.1) 3.1 mmol/L (3.5-5.1) Chloride Level 103 mmol/L (98-107) 104 mmol/L (98-107) Carbon Dioxide Level 30 mmol/L (21-32) 30 mmol/L (21-32) Anion Gap 13 (6-14) 11 (6-14) Blood Urea Nitrogen 8 mg/dL (8-26) 7 mg/dL (8-26) Creatinine 0.9 mg/dL (0.7-1.3) 0.7 mg/dL (0.7-1.3) Estimated GFR (Cockcroft-Gault) 93.5 124.9 BUN/Creatinine Ratio 9 (6-20) 10 (6-20) Glucose Level 121 mg/dL (70-99) 126 mg/dL (70-99) Lactic Acid Level 4.0 mmol/L (0.4-2.0) 3.0 mmol/L (0.4-2.0) Calcium Level 8.3 mg/dL (8.5-10.1) 7.9 mg/dL (8.5-10.1) Phosphorus Level 3.9 mg/dL (2.6-4.7) Magnesium Level 1.9 mg/dL (1.8-2.4) Total Bilirubin 0.3 mg/dL (0.2-1.0) 0.2 mg/dL (0.2-1.0) Aspartate Amino Transf (AST/SGOT) 27 U/L (15-37) 24 U/L (15-37) Alanine Aminotransferase (ALT/SGPT) 49 U/L (16-63) 43 U/L (16-63) Alkaline Phosphatase 80 U/L (46-116) 76 U/L (46-116) Creatine Kinase 959 U/L (39-308) Myoglobin 62 ng/mL (16-96) Total Protein 8.5 g/dL (6.4-8.2) 7.7 g/dL (6.4-8.2) Albumin 3.7 g/dL (3.4-5.0) 3.3 g/dL (3.4-5.0) Albumin/Globulin Ratio 0.8 (1.0-1.7) 0.8 (1.0-1.7) Salicylates Level 2.0 mg/dL (2.8-20.0) Salicylate Last Dose Date Salicylate Last Dose Time Acetaminophen Level < 2 mcg/ml (10-30) Acetaminophen Last Dose Date Acetaminophen Last Dose Time Ethyl Alcohol Level 443 mg/dL (0-10) VTE Prophylaxis Ordered VTE Prophylaxis Devices: No VTE Pharmacological Prophylaxi: Yes Assessment/Plan Assessment/Plan Acute metabolic encephalopathy -likely toxic encephalopathy due to alcohol intoxication will monitor mental status. Acute alcohol intoxication with delirium -with history of withdrawal seizures will monitor on CIWA protocol banana bag given Lactic acidosis -likely due to alcohol intoxication we will continue IV fluids and monitor trend History of alcohol withdrawal seizures -CIWA scale Hypokalemia -replace IV and p.o. if he wakes up Leukocytosis -likely reactive no signs of infection. Will monitor trend Mild rhabdomyolysis -likely due to severe alcohol intoxication, Smoker -counseled on cessation offered nicotine replacement therapy Apneic episodes -likely due to intoxication possibly has underlying sleep apnea. Will order nocturnal oximetry study and place Oxygen on prn Morbid obesity -counseled on lifestyle modification. Weight loss FEN - regular diet PPX - lovenox FULL CODE Dispo - inpatient for above Justifications for Admission Other Justification severe alcohol abuse VIOLETTA CLINE MD April 03, 2022 07:58
[2022-04-03] MEDS: PANTOPRAZOLE 40 MG TABLET.DR. PO SCH (08:11)
[2022-04-03] MEDS: GABAPENTIN 300 MG CAPSULE. PO SCH ×3 (08:11→21:37)
[2022-04-03] MEDS: LISINOPRIL 20 MG TABLET PO SCH (08:12)
[2022-04-03] MEDS: POTASSIUM CHLORIDE 40 MEQ in IV DEXTROSE 5% 1,000 ML IV SCH ×2 (08:40→23:32)
[2022-04-03] MEDS ORDERED: NICOTINE 21MG PATCH. TD PRN (14:45)
[2022-04-03] MEDS ORDERED: hydrOXYzine 25 MG TABLET PO SCH (21:00)
[2022-04-04 02:37] VITALS: BP 184/100
[2022-04-04 03:44] VITALS: BP 138/91
[2022-04-04 06:08] LABS: CREATININE 0.7 mg/dL (0.7-1.3); GFR 124.9
[2022-04-04 06:34] VITALS: BP 149/102
[2022-04-04] MEDS: PANTOPRAZOLE 40 MG TABLET.DR. PO SCH (07:53)
[2022-04-04] MEDS: GABAPENTIN 300 MG CAPSULE. PO SCH ×2 (07:53→13:27)
[2022-04-04] MEDS: LISINOPRIL 20 MG TABLET PO SCH (07:53)
--- NOTE | 2022-04-04 08:37 | PDOC ---
[employer] PROGRESS NOTE Date of Service DOS: DATE: 04/04/22 TIME: 08:36 Chief Complaint Chief Complaint Acute metabolic encephalopathy -likely toxic encephalopathy due to alcohol intoxication will monitor mental status. Acute alcohol intoxication with delirium -with history of withdrawal seizures will monitor on CIWA protocol banana bag given Lactic acidosis -likely due to alcohol intoxication we will continue IV fluids and monitor trend History of alcohol withdrawal seizures -CIWA scale Hypokalemia -replace IV and p.o. if he wakes up Leukocytosis -likely reactive no signs of infection. Will monitor trend Mild rhabdomyolysis -likely due to severe alcohol intoxication, Smoker -counseled on cessation offered nicotine replacement therapy Apneic episodes -likely due to intoxication possibly has underlying sleep apnea. Will order nocturnal oximetry study and place Oxygen on prn Morbid obesity -counseled on lifestyle modification. Weight loss FEN - regular diet PPX - lovenox FULL CODE Dispo - inpatient for above History of Present Illness History of Present Illness Mr Graham is a 41 year old male with PMHx HTN and alcohol use disorder who was brought in by EMS from home due to concern for seizure. Patient is intoxicated and told EMS he drank 2 pints of duarte vodka. Patient states that he has a history of seizures but tends to have seizures when he was drinking alcohol. Patient states he drinks 2 pints of vodka today, denies any other drug use. Patient has been admitted several times for alcohol withdrawal in the past. Rylan flores states that his last admission was in November has not drank since then. Noted by nurses to continue to have apneic episodes placed on oxygen. Not able to stay awake very intoxicated confused disoriented Labs with WBC 12.8, Hb 17.3, platelets 280, NA 146, K3.4, BUN 8, CR 0.9, glucose 121, calcium 8.3, lactic acid 4 phosphorus 3.9 mag 1.9 bilirubin 0.3 AST 27 ALT 49 alk phos 80 CK9 159, albumin 3.7 blood ethanol level 443 mg/dL at 2049 on 04/02/202204/04: WBC 11.6 metabolic panel improved lactic acid improved. Notably having some apneic spells placed on O2 overnight. Respiratory therapy not able to perform overnight oximetry study. Discussed with patient urgent need for outpatient overnight oximetry and sleep study and will order 6-minute walk prior to discharge. Vitals/I&O Vitals/I&O: Vital Signs Date Time Temp Pulse Resp B/P (MAP) Pulse Ox O2 Delivery O2 Flow Rate FiO2 04/04/22 07:53 89 149/102 04/04/22 06:34 98.0 22 95 Nasal Cannula 4.0 98.0 I & O 04/03/22 04/03/22 04/04/22 15:00 23:00 07:00 Intake Total 1830 ml 180 ml 950 ml Output Total 700 ml 1250 ml 350 ml Balance 1130 ml -1070 ml 600 ml Physical Exam General: Alert, Cooperative, mild distress Lungs: Clear Abdomen: Normal bowel sounds, Soft, No tenderness, No hepatosplenomegaly, No masses Extremities: No clubbing, No cyanosis, No edema, Normal pulses, No tenderness/swelling Skin: No rashes, No breakdown, No significant lesion Labs Labs: Laboratory Tests Test 04/03/22 12:15 04/04/22 04:30 Lactic Acid Level 2.2 mmol/L (0.4-2.0) Sodium Level 137 mmol/L (136-145) Potassium Level 4.0 mmol/L (3.5-5.1) Chloride Level 98 mmol/L (98-107) Carbon Dioxide Level 28 mmol/L (21-32) Anion Gap 11 (6-14) Blood Urea Nitrogen 7 mg/dL (8-26) Creatinine 0.7 mg/dL (0.7-1.3) Estimated GFR (Cockcroft-Gault) 124.9 Glucose Level 111 mg/dL (70-99) Calcium Level 9.0 mg/dL (8.5-10.1) Assessment and Plan Assessmemt and Plan Problems Medical Problems: (1) Alcohol abuse Status: Acute (2) Alcohol withdrawal Status: Acute Comment Review of Relevant I have reviewed the following items anthony (where applicable) has been applied. Medications: Current Medications Medications (Trade) Dose Ordered Sig/[place] Route PRN Reason Start Time Stop Time Status Last Admin Dose Admin Potassium Chloride 40 meq/ Dextrose 1,020 ml @ 75 mls/hr [id number] IV 04/03/22 09:00 04/03/22 23:32 Gabapentin (Neurontin) 300 mg TID PO 04/03/22 09:00 04/04/22 07:53 Hydroxyzine HCl (Atarax) 25 mg HS PO 5/14/22 21:00 04/03/22 21:37 Lisinopril (Prinivil) 20 mg DAILY PO 04/03/22 09:00 04/04/22 07:53 Pantoprazole Sodium (Protonix) 40 mg DAILYAC PO 04/03/22 09:00 04/04/22 07:53 Justifications for Admission Other Justification severe alcohol abuse VIOLETTA CLINE MD April 04, 2022 08:37
[2022-04-04 11:00] VITALS: BP 173/117
[2022-04-04 12:40] LABS: BASE EXCESS ABG 4 mmol/L (-3-3); HCO3 ABG 28 mmol/L (21-28); PCO2 ABG 40 mmHg (35-46); PO2 ABG 66 mmHg (75-108); SAT O2 ABG 93 % (92-99)
[2022-04-04 12:44] LABS: FIO2 ABG RA
[2022-04-04] MEDS ORDERED: AMLO-187 PO (13:21)
--- NOTE | 2022-04-04 13:25 | PDOC3 ---
Discharge Summary Visit Information Date of Admission: April 02, 2022 Date of Discharge: April 04, 2022 Admitting Diagnosis: Alcohol abuse Final Diagnosis Problems Medical Problems: (1) Alcohol abuse Status: Acute (2) Alcohol withdrawal Status: Acute Brief Hospital Course Allergies Allergies Coded Allergies Type Severity Reaction Last Updated Verified No Known Drug Allergies 11/30/21 No Vital Signs Vital Signs Date Time Temp Pulse Resp B/P (MAP) Pulse Ox O2 Delivery O2 Flow Rate FiO2 04/04/22 13:09 112 173/117 04/04/22 12:45 93 Room Air 04/04/22 11:00 98.0 22 4.0 98.0 Lab Results Laboratory Tests Test 04/02/22 20:50 04/03/22 02:00 04/03/22 07:45 04/03/22 12:15 White Blood Count 12.8 x10^3/uL (4.0-11.0) 11.6 x10^3/uL (4.0-11.0) Red Blood Count 5.64 x10^6/uL (4.30-5.70) 5.17 x10^6/uL (4.30-5.70) Hemoglobin 17.3 g/dL (13.0-17.5) 15.8 g/dL (13.0-17.5) Hematocrit 50.0 % (39.0-53.0) 46.0 % (39.0-53.0) Mean Corpuscular Volume 89 fL (79-100) 89 fL (79-100) Mean Corpuscular Hemoglobin 31 pg (25-35) 31 pg (25-35) Mean Corpuscular Hemoglobin Concent 35 g/dL (31-37) 34 g/dL (31-37) Red Cell Distribution Width 14.2 % (11.5-14.5) 14.0 % (11.5-14.5) Platelet Count 280 x10^3/uL (140-400) 253 x10^3/uL (140-400) Neutrophils (%) (Auto) 44 % (31-73) 46 % (31-73) Lymphocytes (%) (Auto) 50 % (24-48) 46 % (24-48) Monocytes (%) (Auto) 5 % (0-9) 7 % (0-9) Eosinophils (%) (Auto) 1 % (0-3) 1 % (0-3) Basophils (%) (Auto) 1 % (0-3) 1 % (0-3) Neutrophils # (Auto) 5.6 x10^3/uL (1.8-7.7) 5.3 x10^3/uL (1.8-7.7) Lymphocytes # (Auto) 6.4 x10^3/uL (1.0-4.8) 5.4 x10^3/uL (1.0-4.8) Monocytes # (Auto) 0.6 x10^3/uL (0.0-1.1) 0.7 x10^3/uL (0.0-1.1) Eosinophils # (Auto) 0.1 x10^3/uL (0.0-0.7) 0.1 x10^3/uL (0.0-0.7) Basophils # (Auto) 0.1 x10^3/uL (0.0-0.2) 0.1 x10^3/uL (0.0-0.2) Sodium Level 146 mmol/L (136-145) 145 mmol/L (136-145) Potassium Level 3.4 mmol/L (3.5-5.1) 3.1 mmol/L (3.5-5.1) Chloride Level 103 mmol/L (98-107) 104 mmol/L (98-107) Carbon Dioxide Level 30 mmol/L (21-32) 30 mmol/L (21-32) Anion Gap 13 (6-14) 11 (6-14) Blood Urea Nitrogen 8 mg/dL (8-26) 7 mg/dL (8-26) Creatinine 0.9 mg/dL (0.7-1.3) 0.7 mg/dL (0.7-1.3) Estimated GFR (Cockcroft-Gault) 93.5 124.9 BUN/Creatinine Ratio 9 (6-20) 10 (6-20) Glucose Level 121 mg/dL (70-99) 126 mg/dL (70-99) Lactic Acid Level 4.0 mmol/L (0.4-2.0) 3.0 mmol/L (0.4-2.0) 2.5 mmol/L (0.4-2.0) 2.2 mmol/L (0.4-2.0) Calcium Level 8.3 mg/dL (8.5-10.1) 7.9 mg/dL (8.5-10.1) Phosphorus Level 3.9 mg/dL (2.6-4.7) Magnesium Level 1.9 mg/dL (1.8-2.4) Total Bilirubin 0.3 mg/dL (0.2-1.0) 0.2 mg/dL (0.2-1.0) Aspartate Amino Transf (AST/SGOT) 27 U/L (15-37) 24 U/L (15-37) Alanine Aminotransferase (ALT/SGPT) 49 U/L (16-63) 43 U/L (16-63) Alkaline Phosphatase 80 U/L (46-116) 76 U/L (46-116) Creatine Kinase 959 U/L (39-308) Myoglobin 62 ng/mL (16-96) Total Protein 8.5 g/dL (6.4-8.2) 7.7 g/dL (6.4-8.2) Albumin 3.7 g/dL (3.4-5.0) 3.3 g/dL (3.4-5.0) Albumin/Globulin Ratio 0.8 (1.0-1.7) 0.8 (1.0-1.7) Salicylates Level 2.0 mg/dL (2.8-20.0) Salicylate Last Dose Date Salicylate Last Dose Time Acetaminophen Level < 2 mcg/ml (10-30) Acetaminophen Last Dose Date Acetaminophen Last Dose Time Ethyl Alcohol Level 443 mg/dL (0-10) Test 04/04/22 04:30 04/04/22 10:21 Sodium Level 137 mmol/L (136-145) Potassium Level 4.0 mmol/L (3.5-5.1) Chloride Level 98 mmol/L (98-107) Carbon Dioxide Level 28 mmol/L (21-32) Anion Gap 11 (6-14) Blood Urea Nitrogen 7 mg/dL (8-26) Creatinine 0.7 mg/dL (0.7-1.3) Estimated GFR (Cockcroft-Gault) 124.9 Glucose Level 111 mg/dL (70-99) Calcium Level 9.0 mg/dL (8.5-10.1) O2 Saturation 93 % (92-99) Arterial Blood pH 7.46 (7.35-7.45) Arterial Blood pCO2 at Patient Temp 40 mmHg (35-46) Arterial Blood pO2 at Patient Temp 66 mmHg (75-108) Arterial Blood HCO3 28 mmol/L (21-28) Arterial Blood Base Excess 4 mmol/L (-3-3) FiO2 Ra Laboratory Tests Test 04/04/22 04:30 04/04/22 10:21 Sodium Level 137 mmol/L (136-145) Potassium Level 4.0 mmol/L (3.5-5.1) Chloride Level 98 mmol/L (98-107) Carbon Dioxide Level 28 mmol/L (21-32) Anion Gap 11 (6-14) Blood Urea Nitrogen 7 mg/dL (8-26) Creatinine 0.7 mg/dL (0.7-1.3) Estimated GFR (Cockcroft-Gault) 124.9 Glucose Level 111 mg/dL (70-99) Calcium Level 9.0 mg/dL (8.5-10.1) O2 Saturation 93 % (92-99) Arterial Blood pH 7.46 (7.35-7.45) Arterial Blood pCO2 at Patient Temp 40 mmHg (35-46) Arterial Blood pO2 at Patient Temp 66 mmHg (75-108) Arterial Blood HCO3 28 mmol/L (21-28) Arterial Blood Base Excess 4 mmol/L (-3-3) FiO2 Ra Brief Hospital Course Mr Graham is a 41 year old male with PMHx HTN and alcohol use disorder who was brought in by EMS from home due to concern for seizure. Patient is intoxicated and told EMS he drank 2 pints of duarte vodka. Patient states that he has a history of seizures but tends to have seizures when he was drinking alcohol. Patient states he drinks 2 pints of vodka today, denies any other drug use. Patient has been admitted several times for alcohol withdrawal in the past. Patient states that his last admission was in November has not drank since then. Noted by nurses to continue to have apneic episodes placed on oxygen. Not able to stay awake very intoxicated confused disoriented Labs with WBC 12.8, Hb 17.3, platelets 280, NA 146, K3.4, BUN 8, CR 0.9, glucose 121, calcium 8.3, lactic acid 4 phosphorus 3.9 mag 1.9 bilirubin 0.3 AST 27 ALT 49 alk phos 80 CK9 159, albumin 3.7 blood ethanol level 443 mg/dL at 2049 on 04/02/202204/04: WBC 11.6 metabolic panel improved lactic acid improved. Notably having some apneic spells placed on O2 overnight. Respiratory therapy not able to perform overnight oximetry study. Discussed with patient urgent need for outpatient overnight oximetry and sleep study and had an ABG on room air with PaO2 62 prior to discharge no O2 needs. He disclose the reason he drank some much was actually because he has been on amoxicillin for multiple dental caries and has an appointment with a dentist on 04/06/2022 for 4 teeth extractions. Given a dose of Augmentin and given amlodipine for hypertensive urgency though this may be due to pain. All questions answered prior to discharge Problem list: Acute metabolic encephalopathy -likely toxic encephalopathy due to alcohol intoxication resolved quickly. Acute alcohol intoxication with delirium -with history of withdrawal seizures he has not drank for a long time. CIWA was 0 at time of discharge Lactic acidosis -likely due to alcohol intoxication, trended down History of alcohol withdrawal seizures -CIWA scale Hypokalemia -replaced Leukocytosis -likely reactive no signs of infection. Will monitor trend Mild rhabdomyolysis -likely due to severe alcohol intoxication, Smoker -counseled on cessation offered nicotine replacement therapy Apneic episodes -likely due to intoxication possibly has underlying sleep apnea. Will order nocturnal oximetry study and place Oxygen on prn Morbid obesity -counseled on lifestyle modification. Weight loss Dental caries - in 4 teeth, going to dentist on 04/06/2022, on amoxicillin . 30 minutes spent on discharge home with self-care Discharge Information Condition at Discharge: Improved Follow Up: Weeks (1) Disposition/Orders: D/C to Home Scheduled Amlodipine Besylate (Amlodipine Besylate) 10 Mg Tablet, 10 MG PO DAILY for HTN for 30 Days, #30 Ref 2 Prescribed by: VIOLETTA CLINE MD on 04/04/22 1321 Esomeprazole Magnesium (Nexium Capsule) 20 Mg Capsule.dr, 1 CAP PO HS for , #30 Ref 2 (Reported) Entered as Reported by: Christina Castaneda on 04/03/22 0047 Last Action: Converted on 04/03/22 9690 by VIOLETTA CLINE MD Hydroxyzine Hcl (Hydroxyzine Hcl) 25 Mg Tablet, 1 TAB PO HS for , #30 (Reported) Entered as Reported by: Christina Castaneda on 04/03/2246 Last Action: Continued on 04/03/22757 by VIOLETTA CLINE MD Lisinopril (Lisinopril) 10 Mg Tablet, 20 MG PO DAILY for FOR HYPERTENSION, #30 Ref 0 (Reported) Entered as Reported by: BRAXTON LANDRY on 04/02/21803 Last Action: Continued on 04/03/22757 by VIOLETTA CLINE MD Miscellaneous Medications [trazdone] , Unknown Dose, (Reported) Entered as Reported by: Christina Castaneda on 04/03/2246 Last Taken: UNKNOWN on Unknown Date & Time Last Action: New Order on 04/03/2246 by Christina Castaneda Justicifation of Admission Dx: Justifications for Admission: Justification of Admission Dx: Yes VIOLETTA CLINE MD April 04, 2022 13:25
[2022-04-04] MEDS ORDERED: AMOXICILLIN/K CLAV 875/125MG TABLET. PO ONE (13:30)
[2022-04-04 14:25] VITALS: BP 162/93
--- NOTE | 2022-04-04 14:59 | NUR ---
Discharge Note: [facility] FEL[facility] Discharge instructions and discharge home medications reviewed with Patient and a copy given. All questions have been answered and understanding verbalized. The following instructions and handouts were given: New meds Discontinued lines and drains: editing clerk and IV removed Patient discharged to home
== END 2022-04-04 14:35 | disposition home or self-care (01) | DRG 56 ==
LOC: ER 20:26 → 6 SOUTH 22:49
PROVIDERS: ADMIT Internal Medicine; ATTEND Internal Medicine
DX: G31.2 Degeneration of nervous system due to alcohol (principal); G92.8 Other toxic encephalopathy; M62.82 Rhabdomyolysis; F10.139 Alcohol abuse with withdrawal, unspecified; E87.2 Acidosis; F17.210 Nicotine dependence, cigarettes, uncomplicated; I10 Essential (primary) hypertension; F12.90 Cannabis use, unspecified, uncomplicated; Y90.8 Blood alcohol level of 240 mg/100 ml or more; E78.5 Hyperlipidemia, unspecified; R56.9 Unspecified convulsions; D72.829 Elevated white blood cell count, unspecified; E87.6 Hypokalemia; R06.81 Apnea, not elsewhere classified; F10.129 Alcohol abuse with intoxication, unspecified; K02.9 Dental caries, unspecified; E66.01 Morbid (severe) obesity due to excess calories; I16.0 Hypertensive urgency; F32.A Depression, unspecified; F41.9 Anxiety disorder, unspecified; E11.9 Type 2 diabetes mellitus without complications; Z81.1 Family history of alcohol abuse and dependence; Z82.49 Family history of ischemic heart disease and other diseases of the circulatory system; Z71.6 Tobacco abuse counseling; Z79.899 Other long term (current) drug therapy; Z71.3 Dietary counseling and surveillance; Z68.38 Body mass index [BMI] 38.0-38.9, adult
CPT/HCPCS: 36415; 36600; 80048; 80053; 80329; 82550; 82805; 83605; 83735; 83874; 84100; 85025; 93005; 96365; G0480; J1200; J2060; J2405; J3411; J3480; J3490; J7030; J7060; 99285-25; G0378